=== PATIENT | male | born 1970 | race Caucasian/White ===

== ENCOUNTER 2017-02-07 18:28 | Emergency (ER) | payer BC ==
[2017-02-07 18:41] VITALS: TEMP 99.2
[2017-02-07] MEDS ORDERED: GLUCAGON 1 MG/ML VIAL IVP STA (19:19)
--- NOTE | 2017-02-07 19:46 | XR ---
EXAMINATION TYPE: XR chest 2V DATE OF EXAM: 02/07/2017 7:38 PM COMPARISON: 08/05/2016 HISTORY: Choking episode TECHNIQUE: Frontal and lateral views of the chest are obtained. FINDINGS: Heart and mediastinum are normal. Lungs are clear of consolidation. There are no hilar mas ses. There is no sign of a foreign body. Bony thorax is intact. Trachea is midline. IMPRESSION: Normal chest. No change.
--- NOTE | 2017-02-07 19:51 | ED ---
General Adult HPI - General Chief complaint: ENT Stated complaint: Choking Source: patient, EMS Mode of arrival: EMS Limitations: no limitations - History of Present Illness Initial comments: 47-year-old male presenting for evaluation of foreign body stuck in his esophagus. He states that he has a family and personal past medical history of esophageal narrowing although he is unsure of an official diagnosis. He states that in the past he has had multiple episodes where his had food become lodged in his throat but they will usually pass after a short time. He states that he was eating steak tonight and was in a ga causing him to try to swallow APC had not chewed enough and was too large. It became stuck in his throat and he was there for unable to swallow anything further. He states that he has to lean over a bucket because he can't even swallow his own spit. He states his father had similar episodes resulting in him going to a GI specialist for repeated endoscopies with stretching of his esophagus. - Related Data Home Medications Medication Instructions Recorded Confirmed Acetaminophen Tab [Tylenol Tab] 650 mg PO Q4H PRN 08/05/16 02/07/17 Fluticasone/Salmeterol [Advair 1 puff INHALATION RT-BID 08/05/16 02/07/17 250-50 Diskus] Lisinopril [Zestril] 20 mg PO DAILY 08/05/16 02/07/17 Omeprazole 20 mg PO DAILY 08/05/16 02/07/17 Meloxicam [Mobic] 15 mg PO DAILY 02/07/17 02/07/17 predniSONE 15 mg PO BID 02/07/17 02/07/17 Allergies Allergy/AdvReac Type Severity Reaction Status Date / Time No Known Allergies Allergy Verified 02/07/17 19:00 Review of Systems ROS Statement: Those systems with pertinent positive or pertinent negative responses have been documented in the HPI. ROS Other: All systems not noted in ROS Statement are negative. Constitutional: Denies: fever, chills Eyes: Denies: eye pain, eye discharge ENT: Denies: ear pain, throat pain Respiratory: Denies: cough, dyspnea Cardiovascular: Denies: chest pain, palpitations, dyspnea on exertion, orthopnea Endocrine: Denies: fatigue, polydipsia Gastrointestinal: Reports: other (Food bolus (steak) stuck in esophagus ). Denies: abdominal pain, nausea Genitourinary: Denies: urgency, dysuria Musculoskeletal: Denies: back pain, arthralgia Skin: Denies: rash, lesions Neurological: Denies: headache, weakness Psychiatric: Denies: anxiety, depression Past Medical History Past Medical History: Asthma, Hypertension Additional Past Medical History / Comment(s): alcoholism - sober 4 yrs History of Any Multi-Drug Resistant Organisms: None Reported Past Surgical History: Bowel Resection Past Psychological History: No Psychological Hx Reported Smoking Status: Never smoker Past Alcohol Use History: None Reported Past Drug Use History: None Reported General Exam Limitations: no limitations General appearance: alert, in distress Head exam: Present: atraumatic, normocephalic, normal inspection Eye exam: Present: normal appearance, PERRL, EOMI. Absent: scleral icterus, conjunctival injection, periorbital swelling ENT exam: Present: normal exam, mucous membranes moist Neck exam: Present: normal inspection. Absent: tenderness, meningismus, lymphadenopathy Respiratory exam: Present: normal lung sounds bilaterally. Absent: respiratory distress, wheezes, rales, rhonchi, stridor Cardiovascular Exam: Present: regular rate, normal rhythm, normal heart sounds. Absent: systolic murmur, diastolic murmur, rubs, gallop, clicks GI/Abdominal exam: Present: soft, normal bowel sounds. Absent: distended, tenderness, guarding, rebound, rigid Rectal exam: Present: deferred Extremities exam: Present: normal inspection, full ROM, normal capillary refill. Absent: tenderness, pedal edema, joint swelling, calf tenderness Back exam: Present: normal inspection Neurological exam: Present: alert, oriented X3, CN II-XII intact Psychiatric exam: Present: normal affect, normal mood Skin exam: Present: warm, dry, intact, normal color. Absent: rash Course Vital Signs 02/07/17 02/07/17 18:39 19:58 Temperature 99.2 F Pulse Rate 83 65 Respiratory 18 16 Rate Blood Pressure 167/93 152/92 O2 Sat by Pulse 97 99 Oximetry Medical Decision Making - Medical Decision Making 47-year-old male with past medical history of esophageal foreign bodies presented for evaluation of throat/chest pain following eating a larger piece of steak resulting in inability to swallow saliva. On initial evaluation the patient was bent over a bucket with saliva running out of his mouth. He is able to phonate without difficulty and has no respiratory distress. He states that this is happened before and that his father also had a similar condition requiring multiple endoscopies. We'll provide patient with glucagon, Reglan, nitro, and obtain AP and lateral views of both the chest and the neck. Prior to administering any medications the patient had sudden onset relief of all symptoms. He is provided with a bedside swallow challenge which he passed without difficulty. AP chest x-ray was obtained which showed no acute abnormalities. The patient was informed of these results and that he would be discharged with instructions to follow-up with his primary care physician as well as a referral for a GI specialist. He is further advised to return to this facility if his symptoms should worsen or persist. He acknowledged an understanding of this information and agreed with this plan of care. Disposition Clinical Impression: Impacted esophageal foreign body Disposition: HOME SELF-CARE Condition: Stable Instructions: Esophageal Foreign Body (ED) Referrals: Bobbi Wheat MD [Primary Care Provider] - 1-2 days Naomie Weaver MD [STAFF PHYSICIAN] - 1-2 days Time of Disposition: 19:51
[2017-02-07 19:59] VITALS: BP 152/92; PULSE 65; RESP 16
== END 2017-02-07 19:59 | disposition home or self-care (01) ==
LOC: EC 18:28
DX: T18.128A Food in esophagus causing other injury, initial encounter (principal); J45.909 Unspecified asthma, uncomplicated; I10 Essential (primary) hypertension; Z90.49 Acquired absence of other specified parts of digestive tract; Z79.1 Long term (current) use of non-steroidal anti-inflammatories (NSAID); Z79.51 Long term (current) use of inhaled steroids; Z79.52 Long term (current) use of systemic steroids; Z79.899 Other long term (current) drug therapy
CPT/HCPCS: 71020; 99283

== ENCOUNTER → 2018-02-23 | Outpatient (CLI) | payer BC ==
--- NOTE | 2018-02-23 10:02 | US ---
EXAMINATION TYPE: US abdomen complete DATE OF EXAM: 02/23/2018 COMPARISON: NONE CLINICAL HISTORY: R94.5 Elevated liver test,R10.84 Abdominal pain. Fatigue, Previous Alcohol Abuse EXAM MEASUREMENTS: Liver Length: 15.6 cm Gallbladder Wall: 0.2 cm CBD: 0.5 cm Spleen: 10.0 cm Right Kidney: 10.1 x 5.0 x 4.5 cm Left Kidney: 10.4 x 6.0 x 5.0 cm Pancreas: Obscured by bowel gas, duct =0.2 cm Liver: wnl Gallbladder: wnl Evidence for sonographic Bragg's sign: No CBD: wnl Spleen: wnl Right Kidney: wnl Left Kidney: Cyst mid/lower pole = 2.7 x 1.9 x 1.7 cm Upper IVC: wnl Abd Aorta: wnl, Mid portion obscured by overlying bowel gas. IMPRESSION: 1. Inferior pole simple appearing left renal cyst.
== END | disposition home or self-care (01) ==
LOC: RADUSWWP 07:01
PROVIDERS: ATTEND Internal Medicine
DX: R94.5 Abnormal results of liver function studies (principal)
CPT/HCPCS: 76700

== ENCOUNTER 2019-06-29 00:53 | Emergency (ER) | payer BC ==
[2019-06-29 01:22] VITALS: BP 112/74; PULSE 69; RESP 20; TEMP 97.7
[2019-06-29] MEDS ORDERED: methylPREDNISolone SOD SUCCI 125 MG/2 ML VIAL IM ONE (02:12)
--- NOTE | 2019-06-29 02:13 | ED ---
Back Pain HPI - General Chief Complaint: Back Pain/Injury Stated Complaint: Back Pain Time Seen by Provider: 06/29/19 01:27 Source: patient Limitations: no limitations - History of Present Illness Initial Comments: 49-year-old male patient presents to the emergency department today for evaluation of mid low back pain. Patient states he does have chronic low back pain in his symptoms are consistent with his usual back pain pattern. Patient states his pain has been increasing over the last 2 days. Patient states he was doing more vigorous physical activity at work which exacerbated his symptoms. He denies any radiation the pain down his legs. Denies any numbness or tingling to the lower extremities. Denies any saddle anesthesia or loss of bowel or bladder control. Patient states that he has been taking Tylenol for pain at home. States he does have a pain stimulator implanted however due to insurance reasons has been unable to have this adjusted. States he does have an appointment in 1 week with a painter touch up. Patient is requesting prescription for steroids. Declines pain medication at this time. He denies any fever or chills per denies any known injury to the back. Patient denies any headache, neck pain, chest pain, shortness of breath, dizziness, weakness, abdominal pain, nausea, vomiting, or difficulties with bowel movements or urin ation. - Related Data Home Medications Medication Instructions Recorded Confirmed Fluticasone/Salmeterol [Advair 1 puff INHALATION RT-BID 08/05/16 06/29/19 250-50 Diskus] Lisinopril [Zestril] 20 mg PO DAILY 08/05/16 06/29/19 Omeprazole 20 mg PO DAILY 08/05/16 06/29/19 Meloxicam [Mobic] 15 mg PO DAILY 02/07/17 06/29/19 Previous Rx's Medication Instructions Recorded predniSONE 50 mg PO DAILY #5 tablet 06/29/19 Allergies Allergy/AdvReac Type Severity Reaction Status Date / Time No Known Allergies Allergy Verified 02/07/17 19:00 Review of Systems ROS Statement: Those systems with pertinent positive or pertinent negative responses have been documented in the HPI. ROS Other: All systems not noted in ROS Statement are negative. Past Medical History Past Medical History: Asthma, Hypertension Additional Past Medical History / Comment(s): alcoholism - sober 4 yrs History of Any Multi-Drug Resistant Organisms: None Reported Past Surgical History: Bowel Resection Past Psychological History: No Psychological Hx Reported Smoking Status: Never smoker Past Alcohol Use History: None Reported Past Drug Use History: None Reported General Exam Limitations: no limitations General appearance: alert, in no apparent distress, other (Physical well- developed, well-nourished adult male patient in no acute distress. Vital signs upon presentation are temperature 97.7F, pulse 69, respirations 20, blood pressure 112/74, pulse ox 98% on room air.) Eye exam: Present: normal appearance, PERRL, EOMI. Absent: scleral icterus, conjunctival injection, periorbital swelling ENT exam: Present: normal exam, normal oropharynx, mucous membranes moist Respiratory exam: Present: normal lung sounds bilaterally. Absent: respiratory distress, wheezes, rales, rhonchi, stridor Cardiovascular Exam: Present: regular rate, normal rhythm, normal heart sounds. Absent: systolic murmur, diastolic murmur, rubs, gallop, clicks GI/Abdominal exam: Present: soft, normal bowel sounds. Absent: distended, tenderness, guarding, rebound, rigid Back exam: Present: normal inspection. Absent: vertebral tenderness Neurological exam: Present: alert, oriented X3, CN II-XII intact Psychiatric exam: Present: normal affect, normal mood Skin exam: Present: warm, dry, intact, normal color. Absent: rash Course Vital Signs 06/29/19 01:18 Temperature 97.7 F Pulse Rate 69 Respiratory 20 Rate Blood Pressure 112/74 O2 Sat by Pulse 98 Oximetry Medical Decision Making - Medical Decision Making 49-year-old male patient presents to the emergency department today for evaluation of worsening of his chronic low back pain. Physical examination is unremarkable. He is neurologically intact with no focal deficits. Strength in the lower extremities is intact. He is ambulatory. He is requesting prescription for steroids, declines pain medication. We will fill for prednisone for him. Is instructed to follow-up with his painter touch up as he has planned. Is instructed to follow-up with his primary care physician for recheck in 1-2 days. Return parameters were discussed in detail. He verbalizes understanding and agrees with this plan. Disposition Clinical Impression: Acute exacerbation of chronic low back pain Disposition: HOME SELF-CARE Condition: Good Instructions (If sedation given, give patient instructions): Acute Low Back Pain (ED) Additional Instructions: Perform gentle stretching exercises. Alternate ice and heat to the low back. Take medication as directed. Follow-up with your physician as you have planned. Return to the emergency department immediately for any new, worsening, or concerning symptoms. Prescriptions: predniSONE 50 mg PO DAILY #5 tablet Is patient prescribed a controlled substance at d/c from ED?: No Referrals: Bobbi Wheat MD [Primary Care Provider] - 1-2 days Time of Disposition: 02:13
== END 2019-06-29 02:28 | disposition home or self-care (01) ==
LOC: EC 00:53
DX: G89.29 Other chronic pain (principal); M54.5 Low back pain; J45.909 Unspecified asthma, uncomplicated; I10 Essential (primary) hypertension; Z79.1 Long term (current) use of non-steroidal anti-inflammatories (NSAID); Z79.899 Other long term (current) drug therapy
CPT/HCPCS: 99283; 96372; J2930

== ENCOUNTER 2021-03-10 09:22 | Inpatient (IN) | payer BC ==
[2021-03-10] MEDS ORDERED: SODIUM CHLORIDE 0.9% 500 ML 500 ML IV STA (09:41)
[2021-03-10] MEDS ORDERED: KETOROLAC 15 MG/ML 1 ML VIAL IVP STA (09:42)
[2021-03-10] MEDS ORDERED: LORazepam 2 MG/ML INJ IV STA (09:42)
--- NOTE | 2021-03-10 09:47 | ED ---
SOB HPI - General Chief Complaint: Shortness of Breath Stated Complaint: Covid+, low O2 Time Seen by Provider: 03/10/21 09:33 Source: patient, RN notes reviewed Mode of arrival: ambulatory Limitations: no limitations - History of Present Illness Initial Comments: 51-year-old male presents emergency Department chief complaint of shortness of breath, positive covid. Patient states that it's has a +6 days ago. Patient states progressively worsening. He does have a history of asthma. Patient states she's had increased shortness breath, fever cough congestion body aches. Patient denies any GI symptoms including nausea, vomiting, diarrhea constipat ion. Patient's had multiple sick contacts. Patient does have a history of hypertension states he did take his blood pressure medication he states been taking prednisone for his back. - Related Data Home Medications Medication Instructions Recorded Confirmed Albuterol Inhaler [Ventolin Hfa 2 puff INHALATION RT-Q6H PRN 03/10/21 03/10/21 Inhaler] Dexamethasone [Decadron] 6 mg PO DAILY 03/10/21 03/10/21 Fluticasone Nasal Rogers [Flonase 2 spr EA NOSTRIL DAILY 03/10/21 03/10/21 Nasal Rogers] LORazepam [Ativan] 0.25 - 0.5 mg PO DAILY PRN 03/10/21 03/10/21 Loratadine 10 mg PO DAILY 03/10/21 03/10/21 Meloxicam [Mobic] 15 mg PO DAILY 03/10/21 03/10/21 Montelukast [Singulair] 10 mg PO DAILY 03/10/21 03/10/21 Omeprazole 20 mg PO BID 03/10/21 03/10/21 Sildenafil [Revatio] 40 - 60 mg PO DAILY PRN 03/10/21 03/10/21 Testosterone Cypionate 250 mg IM Q14D 03/10/21 03/10/21 [Depo-Testosterone] lisinopriL 40 mg PO DAILY 03/10/21 03/10/21 predniSONE See Taper PO DAILY 03/10/21 03/10/21 Allergies Allergy/AdvReac Type Severity Reaction Status Date / Time No Known Allergies Allergy Verified 03/10/21 10:43 Review of Systems ROS Statement: Those systems with pertinent positive or pertinent negative responses have been documented in the HPI. ROS Other: All systems not noted in ROS Statement are negative. Past Medical History Past Medical History: Asthma, Hypertension Additional Past Medical History / Comment(s): alcoholism - sober 10yrs History of Any Multi-Drug Resistant Organisms: None Reported Past Surgical History: Bowel Resection Past Psychological History: Anxiety Smoking Status: Never smoker Past Alcohol Use History: None Reported Past Drug Use History: None Reported General Exam Limitations: no limitations General appearance: alert, in no apparent distress Head exam: Present: atraumatic, normocephalic, normal inspection Eye exam: Present: normal appearance, PERRL, EOMI. Absent: scleral icterus, conjunctival injection, periorbital swelling ENT exam: Present: normal exam, normal oropharynx, mucous membranes moist Neck exam: Present: normal inspection, full ROM. Absent: tenderness, meningismus, lymphadenopathy Respiratory exam: Present: wheezes, decreased breath sounds. Absent: normal lung sounds bilaterally, respiratory distress, rales, rhonchi, stridor Cardiovascular Exam: Present: regular rate, normal rhythm, normal heart sounds. Absent: systolic murmur, diastolic murmur, rubs, gallop, clicks GI/Abdominal exam: Present: soft, normal bowel sounds. Absent: distended, tenderness, guarding, rebound, rigid Extremities exam: Present: normal capillary refill. Absent: pedal edema Neurological exam: Present: alert Skin exam: Present: warm, dry, intact, normal color. Absent: rash Course Vital Signs 03/10/21 03/10/21 09:23 09:41 Temperature 97.8 F Pulse Rate 97 101 H Respiratory 22 24 Rate Blood Pressure 178/110 164/101 O2 Sat by Pulse 88 L 96 Oximetry Medical Decision Making - Medical Decision Making X-ray shows diffuse bilateral infiltrates, patient was hypoxic at 88 on arrival. Patient is positive for COVID-19. Patient does have mild leukocytosis most likely related from his prednisone use. Patient will be admitted for further tr eatment and evaluation - Lab Data Result diagrams: 03/10/21 09:45 03/10/21 09:45 Lab Results 03/10/21 03/10/21 03/10/21 Range/Units 09:45 09:45 09:45 WBC 21.0 H (3.8-10.6) k/uL RBC 5.62 (4.30-5.90) m/uL Hgb 15.2 (13.0-17.5) gm/dL Hct 46.0 (39.0-53.0) % MCV 81.9 (80.0-100.0) fL MCH 27.1 (25.0-35.0) pg MCHC 33.1 (31.0-37.0) g/dL RDW 13.4 (11.5-15.5) % Plt Count 252 (150-450) k/uL MPV 6.9 Neutrophils % 96 % Lymphocytes % 2 % Monocytes % 2 % Eosinophils % 0 % Basophils % 0 % Neutrophils # 20.2 H (1.3-7.7) k/uL Lymphocytes # 0.3 L (1.0-4.8) k/uL Monocytes # 0.4 (0-1.0) k/uL Eosinophils # 0.0 (0-0.7) k/uL Basophils # 0.0 (0-0.2) k/uL PT 9.5 (9.0-12.0) sec INR 0.9 (<1.2) APTT 23.2 (22.0-30.0) sec Sodium 136 L (137-145) mmol/L Potassium 4.5 (3.5-5.1) mmol/L Chloride 99 (98-107) mmol/L Carbon Dioxide 29 (22-30) mmol/L Anion Gap 8 mmol/L BUN 20 (9-20) mg/dL Creatinine 0.88 (0.66-1.25) mg/dL Est GFR (CKD-EPI)AfAm >90 (>60 ml/min/1.73 sqM) Est GFR (CKD-EPI)NonAf >90 (>60 ml/min/1.73 sqM) Glucose 122 H (74-99) mg/dL Calcium 9.2 (8.4-10.2) mg/dL Magnesium 2.1 (1.6-2.3) mg/dL Total Bilirubin 0.8 (0.2-1.3) mg/dL AST 32 (17-59) U/L ALT 22 (4-49) U/L Alkaline Phosphatase 61 (38-126) U/L Troponin I (0.000-0.034) ng/mL Total Protein 6.4 (6.3-8.2) g/dL Albumin 3.5 (3.5-5.0) g/dL 03/10/21 Range/Units 09:45 WBC (3.8-10.6) k/uL RBC (4.30-5.90) m/uL Hgb (13.0-17.5) gm/dL Hct (39.0-53.0) % MCV (80.0-100.0) fL MCH (25.0-35.0) pg MCHC (31.0-37.0) g/dL RDW (11.5-15.5) % Plt Count (150-450) k/uL MPV Neutrophils % % Lymphocytes % % Monocytes % % Eosinophils % % Basophils % % Neutrophils # (1.3-7.7) k/uL Lymphocytes # (1.0-4.8) k/uL Monocytes # (0-1.0) k/uL Eosinophils # (0-0.7) k/uL Basophils # (0-0.2) k/uL PT (9.0-12.0) sec INR (<1.2) APTT (22.0-30.0) sec Sodium (137-145) mmol/L Potassium (3.5-5.1) mmol/L Chloride (98-107) mmol/L Carbon Dioxide (22-30) mmol/L Anion Gap mmol/L BUN (9-20) mg/dL Creatinine (0.66-1.25) mg/dL Est GFR (CKD-EPI)AfAm (>60 ml/min/1.73 sqM) Est GFR (CKD-EPI)NonAf (>60 ml/min/1.73 sqM) Glucose (74-99) mg/dL Calcium (8.4-10.2) mg/dL Magnesium (1.6-2.3) mg/dL Total Bilirubin (0.2-1.3) mg/dL AST (17-59) U/L ALT (4-49) U/L Alkaline Phosphatase (38-126) U/L Troponin I <0.012 (0.000-0.034) ng/mL Total Protein (6.3-8.2) g/dL Albumin (3.5-5.0) g/dL Disposition Clinical Impression: Pneumonia due to COVID-19 virus, Hypoxic Disposition: ADMITTED IP TO THIS HOSP Condition: Fair Referrals: Tara Hunt DO [Primary Care Provider] - 1-2 days
[2021-03-10 09:56] LABS: Basophils % (A) 0 %; Eosinophils % (A) 0 %; HGB 15.2 gm/dL (13.0-17.5); Lymphocytes # (A) 0.3 k/uL (1.0-4.8); Lymphocytes % (A) 2 %; MCH 27.1 pg (25.0-35.0); MCHC 33.1 g/dL (31.0-37.0); MCV 81.9 fL (80.0-100.0); Mean Platelet Volume 6.9; Monocytes # (A) 0.4 k/uL (0-1.0); Monocytes % (A) 2 %; Neutrophils # (A) 20.2 k/uL (1.3-7.7); Neutrophils % (A) 96 %; Platelet Count 252 k/uL (150-450); RBC 5.62 m/uL (4.30-5.90); RDW 13.4 % (11.5-15.5)
[2021-03-10 10:04] LABS: INR 0.9 (<1.2); Partial Thromboplastin Time 23.2 sec (22.0-30.0); Prothrombin Time 9.5 sec (9.0-12.0)
--- NOTE | 2021-03-10 10:06 | XR ---
EXAMINATION TYPE: XR chest 1V portable DATE OF EXAM: 03/10/2021 COMPARISON: Chest x-ray February 07, 2017 HISTORY: Cough and fever. COVID positive TECHNIQUE: Single AP portable frontal view of the chest is obtained. FINDINGS: There are multifocal and confluent opacities in the mid to lower lungs on background low l carissa volumes. The cardiac silhouette size remains within normal limits. The osseous structures are intact. IMPRESSION: New Multifocal and confluent bilateral opacities consistent with reported history of cov id-19 infection.
[2021-03-10 10:09] LABS: ALT 22 U/L (4-49); AST 32 U/L (17-59); African American GFR (CKD) >90 (>60 ml/min/1.73 sqM); Albumin 3.5 g/dL (3.5-5.0); Alkaline Phosphatase 61 U/L (38-126); Anion Gap 8 mmol/L; Blood Urea Nitrogen 20 mg/dL (9-20); Calcium 9.2 mg/dL (8.4-10.2); Carbon Dioxide 29 mmol/L (22-30); Chloride 99 mmol/L (98-107); Glucose 122 mg/dL (74-99); Magnesium 2.1 mg/dL (1.6-2.3); Non-African American GFR(CKD) >90 (>60 ml/min/1.73 sqM); Potassium 4.5 mmol/L (3.5-5.1); Sodium 136 mmol/L (137-145); Total Bilirubin 0.8 mg/dL (0.2-1.3); Total Protein 6.4 g/dL (6.3-8.2)
[2021-03-10] MEDS ORDERED: IBUPROFEN 600 MG TAB PO PRN (11:27)
[2021-03-10] MEDS ORDERED: ACETAMINOPHEN TAB 325 MG TAB PO PRN (11:27)
[2021-03-10] MEDS ORDERED: NALOXONE 0.4 MG/ML 1 ML VIAL IV PRN (11:27)
[2021-03-10] MEDS: DEXAMETHASONE SOD PHOSPHATE 10 MG/ML 1 ML VIAL IV SCH (11:55)
[2021-03-10] MEDS ORDERED: REMDESIVIR 200 MG in SODIUM CHLORIDE 0.9% 250 ML IVPB ONE (13:00)
[2021-03-10] MEDS: ENOXAPARIN 40 MG/0.4 ML SYRINGE SQ SCH (13:20)
--- NOTE | 2021-03-10 15:08 | P.CNPUL ---
History of Present Illness Consult date: 03/10/21 Requesting physician: Tara Hunt Reason for consult: dyspnea, cough, hypoxemia, pneumonia, abnormal CXR/CT Chief complaint: Shortness of breath. History of present illness: 51-year-old male, with a history of hypertension, asthma, and alcoholism, who presents to the emergency department on March 10, complaining of increasing shortness of breath, and low saturations. The patient hasn't been feeling well for about 6-7 days. Things got progressively worse over the last couple of days, and he came in to be evaluated. He does have history of underlying chronic bronchial asthma. He did test positive for coronavirus about a week ago. His symptoms included shortness of breath, fever, cough, congestion, body aches. The symptoms got worse the last couple of days. Chest x-ray showed di ffuse bilateral infiltrates consistent with coronavirus pneumonia. White count 21,000, hemoglobin 15.2, hematocrit 46, platelet count 252,000. PT INR PTT and d-dimer were all within normal range. Sodium 136, potassium 4.5, chloride 99, CO2 29, anion gap 8, BUN 20, creatinine 0.88. LDH is 932. Review of Systems REVIEW OF SYSTEMS: CONSTITUTIONAL: Fever/chills. NEUROLOGIC: [ Negative.] HEENT: [ Negative.] CARDIAC: [Negative.] PULMONARY: Shortness of breath, cough, chest congestion. GI: [Negative.] : [Negative.] RHEUMATOLOGIC: [ Negative.] IMMUNOLOGIC: [ Negative.] ENDOCRINE: [Negative. ] DERMATOLOGIC: [Negative.] Past Medical History Past Medical History: Asthma, Hypertension Additional Past Medical History / Comment(s): alcoholism - sober 10yrs History of Any Multi-Drug Resistant Organisms: None Reported Past Surgical History: Bowel Resection Past Psychological History: Anxiety Smoking Status: Never smoker Past Alcohol Use History: None Reported Past Drug Use History: None Reported Medications and Allergies Home Medications Medication Instructions Recorded Confirmed Type Albuterol Inhaler [Ventolin Hfa 2 puff INHALATION RT-Q6H PRN 03/10/21 03/10/21 History Inhaler] Dexamethasone [Decadron] 6 mg PO DAILY 03/10/21 03/10/21 History Fluticasone Nasal [place] [Flonase 2 spr EA NOSTRIL DAILY 03/10/21 03/10/21 History Nasal [place]] LORazepam [Ativan] 0.25 - 0.5 mg PO DAILY PRN 03/10/21 03/10/21 History Loratadine 10 mg PO DAILY 03/10/21 03/10/21 History Meloxicam [Mobic] 15 mg PO DAILY 03/10/21 03/10/21 History Montelukast [Singulair] 10 mg PO DAILY 03/10/21 03/10/21 History Omeprazole 20 mg PO BID 03/10/21 03/10/21 History Sildenafil [Revatio] 40 - 60 mg PO DAILY PRN 03/10/21 03/10/21 History Testosterone Cypionate 250 mg IM Q14D 03/10/21 03/10/21 History [Depo-Testosterone] lisinopriL 40 mg PO DAILY 03/10/21 03/10/21 History predniSONE See Taper PO DAILY 03/10/21 03/10/21 History Allergies Allergy/AdvReac Type Severity Reaction Status Date / Time No Known Allergies Allergy Verified 03/10/21 10:43 Physical Exam Osteopathic Statement: *. No significant issues noted on an osteopathic structural exam other than those noted in the History and Physical/Consult. Vitals: Vital Signs Temp Pulse Resp BP Pulse Ox 03/10/21 11:27 86 18 156/106 95 03/10/21 09:41 101 H 24 164/101 96 03/10/21 09:23 97.8 F 97 22 178/110 88 L Intake and Output 03/09/21 03/10/21 03/10/21 22:59 06:59 14:59 Other: Weight 81.647 kg No acute distress, oriented 3. No respiratory distress, use of accessory muscles, or audible wheezing. Saturations 95% on 4 L. HEENT examination is grossly unremarkable. Neck supple. Full range of motion. No adenopathy thyromegaly or neck vein distention. Cardiovascular examination reveals regular rhythm rate. S1-S2 normal. No S3 or S4. No discernible murmur noted. Heart rate 89 bpm. Lungs reveal scattered bilateral rhonchi and crackles. No wheezes. Breath sounds equal bilaterally. Abdomen soft bowel sounds are heard. No masses or tenderness. Extremities are intact. No cyanosis clubbing or edema. Skin is without rash or lesion. Neurologic examination is brief but nonfocal. Results - Laboratory Findings CBC and BMP: 03/10/21 09:45 03/10/21 09:45 PT/INR, D-dimer PT 9.5 sec (9.0-12.0) 03/10/21 09:45 INR 0.9 (<1.2) 03/10/21 09:45 D-Dimer 0.40 mg/L FEU (<0.60) 03/10/21 13:36 Abnormal lab findings: Abnormal Labs 03/10/21 03/10/21 03/10/21 09:45 09:45 13:36 WBC 21.0 H Neutrophils # 20.2 H Lymphocytes # 0.3 L Sodium 136 L Glucose 122 H Lactate Dehydrogenase 932 H - Diagnostic Findings Chest x-ray: image reviewed Assessment and Plan Assessment: Acute hypoxemic respiratory failure secondary to COVID 19 pneumonia/pneumonitis. Chronic bronchial asthma. History of hypertension. History of recovering alcoholism. History of DJD. Plan: Plan dated 03/10/2021. The patient was seen in the emergency department. He is in room 2. The patient was felt to be a candidate for all appropriate therapies including vitamin C, vitamin D3, zinc, Decadron, Lovenox, and REM. His symptoms began about a week ago. Maybe a bit less than that. Given his age, and his relative good health, we thought he would benefit from the full spectrum of treatments. We will continue to follow make recommendations were needed. Prognosis is guarded. No additional recommendations are made at this time. Time with Patient: Greater than 30
--- NOTE | 2021-03-10 15:28 | HP ---
HISTORY AND PHYSICAL DATE OF SERVICE: 03/10/2021. CHIEF COMPLAINTS: Shortness of breath and cough. HISTORY OF PRESENT ILLNESS: This 51-year-old gentleman with a past medical history of multiple medical problems including asthma, hypertension, history of EtOH, sober for 10 years, history of anxiety being followed by Dr. Hunt in the outpatient setting, is complaining of fever. The patient apparently tested positive Covid-19 about 6 days ago. The patient had increasing shortness of breath and cough and the patient came to [facility] and patient is found to be hypoxic, room air pulse ox 88 percent. The patient also had features of bilateral interstitial pneumonia as evidenced by CT scan of the chest which was reviewed personally by me. The patient admitted to the hospital for further evaluation and treatment. With oxygen, pulse ox is slightly improving at this time. There is no history of fever, rigors or chills. No history of headache, loss of consciousness or seizures at this time. PAST MEDICAL HISTORY: History of asthma, hypertension, history of EtOH. MEDICATIONS: Home medications are: Prednisone, lisinopril, testosterone, Revatio, omeprazole, Singulair, Mobic, loratadine, Ativan, Flonase, Decadron, Ventolin. ALLERGIES: None. FAMILY HISTORY: No history of heart disease or strokes. SOCIAL HISTORY: No history of smoking. Previous alcohol intake. REVIEW OF SYSTEMS: ENT: No diminished vision. No diminished hearing. CARDIOVASCULAR: As mentioned earlier. RESPIRATION: As mentioned earlier. GI no nausea or vomiting. : No dysuria. NERVOUS SYSTEM: No numbness, weakness. ALLERGY/IMMUNOLOGY: As mentioned earlier. HEMATOLOGY/ONCOLOGY: No history of anemia. ENDOCRINE: No history of diabetes or hypothyroidism. CONSTITUTIONAL: As mentioned earlier. DERMATOLOGY negative. RHEUMATOLOGY negative. PSYCH: As mentioned earlier. PHYSICAL EXAMINATION: The patient is alert and oriented times three. Pulse 86, blood pressure 151/106, respiration 18, temperature 97.8, pulse ox 94% on 4 L. HEENT: Conjunctivae normal. NECK: No JVD. CARDIOVASCULAR: S1, S2 normal. RESPIRATORY: Breath sounds diminished in the bases. Scattered rhonchi and crackles. ABDOMEN: Soft, nontender. No mass palpable. LEGS: No edema. No swelling. NERVOUS SYSTEM: Higher functions as mentioned earlier. Moves all 4 limbs. No focal motor or sensory deficits. LYMPHATICS: No lymph nodes palpable in the neck, axillae or groin. SKIN: No ulcer, rashes or bleeding. JOINTS: No active deforming arthropathy. LAB STUDIES: WBC 21. D-dimer is 0.4. Glucose 122. ASSESSMENT: 1. Acute Covid-19 infection with acute Covid-19 bilateral interstitial pneumonia with acute hypoxic respiratory failure. 2. Increased WBC. 3. Hyponatremia. 4. History of asthma. 5. Hypertension. 6. History of ETOH. 7. History of bowel resection. 8. History of anxiety. 9. FULL CODE. RECOMMENDATIONS AND DISCUSSION: This 51-year-old gentleman who presented with multiple complex medical issues, we will monitor the patient closely. Continue current medications, pulmonary consultation. Lovenox, dexamethasone, Remdesivir. Otherwise, continue to monitor. Bronchodilators. Incentive spirometry. See orders for details. Prognosis guarded because of multiple complex medical issues. Further recommendations to follow. A copy of dictation being forwarded to Dr. Hunt, who is the primary physician. We will continue with the home medications as well. MMODL / IJN: [id number] /
[2021-03-10] MEDS: CHOLECALCIFEROL 25 MCG (1000 IU) TABLET PO SCH (15:51)
[2021-03-10] MEDS: ZINC SULFATE 220 MG CAP PO SCH (15:51)
[2021-03-10] MEDS: ASCORBIC ACID 500 MG TAB PO SCH (15:51)
[2021-03-10] MEDS ORDERED: hydrALAZINE HCL 20 MG/ML 1 ML VIAL IVP PRN (18:25)
[2021-03-10] MEDS: ALBUTEROL HFA INHALER INHALATION SCH (20:08)
[2021-03-10] MEDS: amLODIPine 10 MG TAB PO SCH (20:42)
[2021-03-11] MEDS: ALBUTEROL HFA INHALER INHALATION SCH ×4 (02:36→17:34)
[2021-03-11] MEDS: lisinopriL 20 MG TAB PO SCH (07:24)
[2021-03-11] MEDS: ENOXAPARIN 40 MG/0.4 ML SYRINGE SQ SCH (07:24)
[2021-03-11] MEDS: PANTOPRAZOLE 40 MG TABLET PO SCH (07:24)
[2021-03-11] MEDS: DEXAMETHASONE SOD PHOSPHATE 10 MG/ML 1 ML VIAL IV SCH (07:24)
[2021-03-11] MEDS: ZINC SULFATE 220 MG CAP PO SCH (07:24)
[2021-03-11] MEDS: MELOXICAM 7.5 MG TAB PO SCH (07:26)
[2021-03-11] MEDS: MONTELUKAST 10 MG TAB PO SCH (07:27)
[2021-03-11] MEDS: ASCORBIC ACID 500 MG TAB PO SCH (07:27)
[2021-03-11] MEDS: CHOLECALCIFEROL 25 MCG (1000 IU) TABLET PO SCH (07:27)
[2021-03-11] MEDS: amLODIPine 10 MG TAB PO SCH (07:27)
[2021-03-11] MEDS: FLUTICASONE 50MCG/SPRAY NASAL 16GM EA NOSTRIL SCH (08:29)
--- NOTE | 2021-03-11 09:18 | P.PN ---
Subjective Progress Note Date: 03/11/21 Principal diagnosis: COVID 19 pneumonia. Progress note dated 03/11/2021. 51-year-old male, with history of hypertension, asthma, and history of alcoholism, who presents to the emergency department on March 10 complaining of increasing shortness of breath and low saturations. The patient was diagnosed as having COVID 19 pneumonia. Currently, he is in the observation unit room 152. He is on 4 L nasal cannula. He is resting comfortably. We did give the patient Decadron, Lovenox, vitamins, and REM. No new labs to report. Objective - Vital Signs Vital signs: Vital Signs Temp 98.1 F 03/11/21 02:00 Pulse 79 03/11/21 02:00 Resp 16 03/11/21 02:00 BP 138/76 03/11/21 02:00 Pulse Ox 91 L 03/11/21 02:00 Intake & Output 03/10/21 03/11/21 03/11/21 18:59 06:59 18:59 Intake Total 0 1108 Balance 0 1108 Weight 81.647 kg Intake: Oral 790 Blood Product 0 318 Ffp Convalescent Plasma 0 318 Cpd Unit [id number] Other: Voiding Method Toilet # Voids 1 2 - Exam No acute distress, oriented 3. No respiratory distress, use of accessory muscles, or audible wheezing. Saturations 95% on 4 L. HEENT examination is grossly unremarkable. Neck supple. Full range of motion. No adenopathy thyromegaly or neck vein distention. Cardiovascular examination reveals regular rhythm rate. S1-S2 normal. No S3 or S4. No discernible murmur noted. Heart rate 79 bpm. Lungs reveal scattered bilateral rhonchi and crackles. No wheezes. Breath sounds equal bilaterally. Abdomen soft bowel sounds are heard. No masses or tenderness. Extremities are intact. No cyanosis clubbing or edema. Skin is without rash or lesion. Neurologic examination is brief but nonfocal. - Labs CBC & Chem 7: 03/10/21 09:45 03/10/21 09:45 Labs: Abnormal Lab Results - Last 24 Hours (Table) 03/10/21 03/10/21 03/10/21 Range/Units 09:45 09:45 13:36 WBC 21.0 H (3.8-10.6) k/uL Neutrophils # 20.2 H (1.3-7.7) k/uL Lymphocytes # 0.3 L (1.0-4.8) k/uL Sodium 136 L (137-145) mmol/L Glucose 122 H (74-99) mg/dL Lactate Dehydrogenase 932 H (313-618) U/L Procalcitonin (0.02-0.09) ng/mL 03/10/21 Range/Units 13:36 WBC (3.8-10.6) k/uL Neutrophils # (1.3-7.7) k/uL Lymphocytes # (1.0-4.8) k/uL Sodium (137-145) mmol/L Glucose (74-99) mg/dL Lactate Dehydrogenase (313-618) U/L Procalcitonin 0.51 H (0.02-0.09) ng/mL Assessment and Plan Assessment: Acute hypoxemic respiratory failure secondary to COVID 19 pneumonia/pneumonitis. Chronic bronchial asthma. History of hypertension. History of recovering alcoholism. History of DJD. Plan: Plan dated 03/10/2021. The patient was seen in the emergency department. He is in room 2. The patient was felt to be a candidate for all appropriate therapies including vitamin C, vitamin D3, zinc, Decadron, Lovenox, and REM. His symptoms began about a week ago. Maybe a bit less than that. Given his age, and his relative good health, we thought he would benefit from the full spectrum of treatments. We will continue to follow make recommendations were needed. Prognosis is guarded. No additional recommendations are made at this time. Plan dated 03/11/2021. The patient isn't observation unit, room 152. The patient is doing well, and is relatively stable. He remains on 34 L nasal cannula. The patient was given vitamin C, and the D3, zinc, Decadron, Lovenox, and REM. We did not think he was sick enough for TOCI. He seems to be doing relatively well. We will continue to follow make recommendations were appropriate. Prognosis is guarded. Time with Patient: Less than 30
[2021-03-11 09:52] LABS: African American GFR (CKD) >90 (>60 ml/min/1.73 sqM); Anion Gap 6 mmol/L; Blood Urea Nitrogen 23 mg/dL (9-20); Calcium 8.3 mg/dL (8.4-10.2); Carbon Dioxide 30 mmol/L (22-30); Chloride 99 mmol/L (98-107); Glucose 97 mg/dL (74-99); LDH 971 U/L (313-618); Non-African American GFR(CKD) >90 (>60 ml/min/1.73 sqM); Potassium 4.4 mmol/L (3.5-5.1); Sodium 135 mmol/L (137-145)
[2021-03-11 09:59] LABS: Basophils % (A) 0 %; Eosinophils % (A) 0 %; HCT 40.7 % (39.0-53.0); HGB 14.1 gm/dL (13.0-17.5); Lymphocytes # (A) 0.4 k/uL (1.0-4.8); Lymphocytes % (A) 2 %; MCH 28.1 pg (25.0-35.0); MCHC 34.5 g/dL (31.0-37.0); MCV 81.5 fL (80.0-100.0); Mean Platelet Volume 6.8; Monocytes # (A) 0.4 k/uL (0-1.0); Monocytes % (A) 3 %; Neutrophils # (A) 15.4 k/uL (1.3-7.7); Neutrophils % (A) 94 %; Platelet Count 242 k/uL (150-450); RDW 13.1 % (11.5-15.5); WBC 16.3 k/uL (3.8-10.6)
[2021-03-11] MEDS: HYDROcodone/APAP 5-325MG 1 EACH TAB PO PRN ×2 (11:54→17:41)
[2021-03-11] MEDS: REMDESIVIR 100 MG in SODIUM CHLORIDE 0.9% 250 ML IVPB SCH (12:37)
[2021-03-11 13:44] LABS: ALT 22 U/L (4-49); AST 33 U/L (17-59); African American GFR (CKD) >90 (>60 ml/min/1.73 sqM); Albumin 3.1 g/dL (3.5-5.0); Alkaline Phosphatase 53 U/L (38-126); Anion Gap 8 mmol/L; Blood Urea Nitrogen 24 mg/dL (9-20); Calcium 8.4 mg/dL (8.4-10.2); Carbon Dioxide 25 mmol/L (22-30); Chloride 100 mmol/L (98-107); Glucose 157 mg/dL (74-99); Non-African American GFR(CKD) >90 (>60 ml/min/1.73 sqM); Potassium 4.4 mmol/L (3.5-5.1); Sodium 133 mmol/L (137-145); Total Bilirubin 0.8 mg/dL (0.2-1.3); Total Protein 5.6 g/dL (6.3-8.2)
[2021-03-11 14:11] LABS: Appearance,Urine Clear (Clear); Bilirubin,Urine Negative (Negative); Blood,Urine Negative (Negative); Color,Urine Yellow; Glucose,Urine (UA) Negative (Negative); Ketones,Urine Negative (Negative); Leukocyte Esterase,Urine Negative (Negative); Nitrite,Urine Negative (Negative); PH, Urine 6.5 (5.0-8.0); Protein,Urine Trace (Negative); Specific Gravity,Urine 1.023 (1.001-1.035); Urobilinogen,Urine <2.0 mg/dL (<2.0)
--- NOTE | 2021-03-11 16:08 | PN ---
PROGRESS NOTE DATE OF SERVICE: 03/11/2021 This 51-year-old gentleman admitted with shortness of breath as well as significant COVID-19 infection and pneumonia is being closely monitored at this time. Dr. Michel is following the patient closely. The patient was started on remdesivir, day 2 today. The patient also had elevated inflammatory markers of COVID, and D-dimer is 0.9. I will order a CT angio of the chest. Past medical history reviewed. REVIEW OF SYSTEMS: CARDIOVASCULAR SYSTEM: No angina, palpitations. RESPIRATORY SYSTEM: As mentioned earlier. GI: As mentioned earlier. : No dysuria or retention. NERVOUS SYSTEM: No numbness, weakness. CURRENT MEDICATIONS: Reviewed. They include Tylenol, [place], Ventolin, vitamin C, vitamin D3, Decadron, Motrin. Doses are reviewed. PHYSICAL EXAMINATION: Alert and oriented x3. Pulse 92, blood pressure 138/89, respiration 18, temperature 99.5, pulse ox 90% on 6 L. HEENT: Conjunctivae normal. NECK: No jugular venous distention. CARDIOVASCULAR SYSTEM: S1, S2 muffled. RESPIRATORY SYSTEM: Breath sounds diminished at the bases. A few scattered rhonchi and crackles. ABDOMEN: Soft, non-tender. LEGS: No edema. No swelling. NERVOUS SYSTEM: No focal deficit. LABS: WBC 16.2, hemoglobin 14.1. D-dimer is 0.9. Sodium is 135 and LDH is 971. ASSESSMENT: 1. Acute COVID-19 infection with acute COVID-19 bilateral interstitial pneumonia with acute hypoxic respiratory failure. 2. Elevated D-dimer. Rule out pulmonary embolism. 3. Increased white count. 4. Hyponatremia. 5. History of asthma. 6. Hypertension. 7. History of ETOH. 8. History of bowel resection. 9. History of anxiety. 10.FULL CODE. RECOMMENDATIONS AND DISCUSSION: I recommend to continue current medications, continue with the monitoring, symptomatic treatment. Continue with remdesivir. Continue with Lovenox. Procalcitonin is elevated at 0.51. Will continue to monitor. I also recommend a CT angio of the chest and continue to monitor. Currently the patient is on 6 L, saturating around 90%. The patient is still short of breath at rest. Prognosis is extremely guarded because of multiple complex medical issues. Further recommendations to follow. MMODL / IJN: [id number] /
--- NOTE | 2021-03-11 16:15 | CT ---
EXAMINATION TYPE: CT angio chest DATE OF EXAM: 03/11/2021 COMPARISON: None HISTORY: Shortness of breath. CT DLP: 389.7 mGycm CONTRAST: CT chest with contrast and 3D reconstruction with MIP imaging is performed with IV Contrast, patient injected with 100 mL of Isovue 370. Contrast-enhanced CT of the chest was performed through the course of the pulmonary arteries with jane g and mediastinal window settings submitted. 3D reconstruction with MIP imaging was also performed. PULMONARY ARTERIES: The pulmonary arteries and their major tributaries are patent. I do not see sherry dence for sizable filling defect to suggest pulmonary embolic process. LUNGS: Diffuse airspace infiltrates throughout both lung yoder. No evidence for atelectasis. No pu lmonary nodule or mass is detected. No pleural effusion. MEDIASTINUM: Thoracic aorta is of normal caliber,however, evaluation is limited given timing of the contrast bolus. If there is concern for thoracic aortic pathology consider ALEJANDRO. Correlate clinicall y . The heart is not enlarged. No evidence for mediastinal mass. No mediastinal lymph nodes greater than 1cm. HILAR STRUCTURES: No evidence for mass. No hilar lymph nodes greater than 1 cm. UPPER ABDOMEN: No significant abnormality is seen. IMPRESSION: 1. No evidence for Pulmonary embolism at this time.
[2021-03-12] MEDS: ALBUTEROL HFA INHALER INHALATION SCH ×4 (00:22→19:48)
[2021-03-12] MEDS: HYDROcodone/APAP 5-325MG 1 EACH TAB PO PRN ×3 (00:38→17:49)
[2021-03-12] MEDS: PANTOPRAZOLE 40 MG TABLET PO SCH (08:05)
[2021-03-12] MEDS: MELOXICAM 7.5 MG TAB PO SCH (08:06)
[2021-03-12] MEDS: MONTELUKAST 10 MG TAB PO SCH (08:06)
[2021-03-12] MEDS: amLODIPine 10 MG TAB PO SCH (08:06)
[2021-03-12] MEDS: CHOLECALCIFEROL 25 MCG (1000 IU) TABLET PO SCH (08:06)
[2021-03-12] MEDS: ASCORBIC ACID 500 MG TAB PO SCH (08:10)
[2021-03-12] MEDS: ZINC SULFATE 220 MG CAP PO SCH (08:10)
[2021-03-12] MEDS: DEXAMETHASONE SOD PHOSPHATE 10 MG/ML 1 ML VIAL IV SCH (08:10)
[2021-03-12] MEDS: lisinopriL 20 MG TAB PO SCH (08:10)
[2021-03-12] MEDS: ENOXAPARIN 40 MG/0.4 ML SYRINGE SQ SCH (08:11)
[2021-03-12] MEDS: FLUTICASONE 50MCG/SPRAY NASAL 16GM EA NOSTRIL SCH (08:11)
[2021-03-12 08:36] LABS: Basophils # (A) 0.1 k/uL (0-0.2); Basophils % (A) 0 %; Eosinophils % (A) 0 %; HCT 44.2 % (39.0-53.0); Lymphocytes # (A) 0.8 k/uL (1.0-4.8); Lymphocytes % (A) 5 %; MCH 27.6 pg (25.0-35.0); MCHC 33.9 g/dL (31.0-37.0); MCV 81.5 fL (80.0-100.0); Mean Platelet Volume 7.3; Monocytes # (A) 0.6 k/uL (0-1.0); Monocytes % (A) 3 %; Neutrophils % (A) 91 %; Platelet Count 271 k/uL (150-450); RBC 5.41 m/uL (4.30-5.90); WBC 16.6 k/uL (3.8-10.6)
--- NOTE | 2021-03-12 10:37 | P.PN ---
Subjective Progress Note Date: 03/12/21 Principal diagnosis: COVID-19 pneumonia 51-year-old male, with a history of hypertension, asthma, and alcoholism, who presents to the emergency department on March 10, complaining of increasing shortness of breath, and low saturations. The patient hasn't been feeling well for about 6-7 days. Things got progressively worse over the last couple of days, and he came in to be evaluated. He does have history of underlying chronic bronchial asthma. He did test positive for coronavirus about a week ago. His symptoms included shortness of breath, fever, cough, congestion, body aches. The symptoms got worse the last couple of days. Chest x-ray showed diffuse bilateral infiltrates consistent with coronavirus pneumonia. White count 21,000, hemoglobin 15.2, hematocrit 46, platelet count 252,000. PT INR PTT and d-dimer were all within normal range. Sodium 136, potassium 4.5, chloride 99, CO2 29, anion gap 8, BUN 20, creatinine 0.88. LDH is 932. Progress note dated 03/11/2021. 51-year-old male, with history of hypertension, asthma, and history of alcoholism, who presents to the emergency department on March 10 complaining of increasing shortness of breath and low saturations. The patient was diagnosed as having COVID 19 pneumonia. Currently, he is in the observation unit room 152. He is on 4 L nasal cannula. He is resting comfortably. We did give the patient Decadron, Lovenox, vitamins, and REM. No new labs to report. The patient is seen today 03/12/2021 in follow-up on the observation unit. He is currently sitting up in bed. Awake and alert in no acute distress. He is still requiring 5 L/m per nasal cannula to maintain O2 saturation in the high 80s low 90s. CT angiogram ruled out pulmonary embolism. There is diffuse bilateral airspace disease. White count 16.6. Hemoglobin 15.0. Lymphocytes 0.8. He was given 1 unit of convalescent plasma. This is day #3 of Remdesivir. He remains on Lovenox, Decadron, vitamin supplements, bronchodilators. Objective - Vital Signs Vital signs: Vital Signs Temp 96.7 F L 03/12/21 00:43 Pulse 89 03/12/21 08:00 Resp 18 03/12/21 08:00 BP 139/80 03/12/21 08:00 Pulse Ox 92 L 03/12/21 08:00 Intake & Output 03/11/21 03/12/21 03/12/21 18:59 06:59 18:59 Intake Total 240 300 Output Total 400 Balance -160 300 Intake: Oral 240 300 Output: Urine 400 Other: Voiding Method Urinal Urinal - Exam GENERAL EXAM: Alert, pleasant 51-year-old gentleman, on 5 L nasal cannula, fairly comfortable in no apparent distress. HEAD: Normocephalic. EYES: Normal reaction of pupils, equal size. NOSE: Clear with pink turbinates. THROAT: No erythema or exudates. NECK: No masses, no JVD. CHEST: No chest wall deformity. LUNGS: Equal air entry with crackles in the bilateral bases. CVS: S1 and S2 normal with no audible murmur, regular rhythm. ABDOMEN: No hepatosplenomegaly, normal bowel sounds, no guarding or rigidity. SPINE: No scoliosis or deformity SKIN: No rashes CENTRAL NERVOUS SYSTEM: No focal deficits, tone is normal in all 4 extremities. EXTREMITIES: There is no peripheral edema. No clubbing, no cyanosis. Peripheral pulses are intact. - Labs CBC & Chem 7: 03/12/21 07:42 03/11/21 13:19 Labs: Abnormal Lab Results - Last 24 Hours (Table) 03/11/21 03/11/21 03/12/21 Range/Units 13:19 13:24 07:42 WBC 16.6 H (3.8-10.6) k/uL Neutrophils # 15.0 H (1.3-7.7) k/uL Lymphocytes # 0.8 L (1.0-4.8) k/uL Sodium 133 L (137-145) mmol/L BUN 24 H (9-20) mg/dL Glucose 157 H (74-99) mg/dL Total Protein 5.6 L (6.3-8.2) g/dL Albumin 3.1 L (3.5-5.0) g/dL Urine Protein Trace H (Negative) Assessment and Plan Assessment: 1 Acute hypoxemic respiratory failure secondary to COVID-19 pneumonia. Receiving Remdesivir, one unit convalescent plasma 2 History of chronic bronchial asthma 3 Hypertension 4 History of alcoholism 5 Degenerative joint disease. Plan: The patient was seen and evaluated by Dr. Michel CAT scan of the chest and labs reviewed Day #3 of Remdesivir Received convalescent plasma Continue Lovenox, Decadron, vitamin supplements Increase his activity as tolerated Titrate the FiO2 as tolerated We will continue to follow I, the cosigning physician, performed a history & physical examination of the patient. Lungs sounds crackles in the bilateral posterior bases. Maintaining good O2 saturations in the 90s on 5 L/m per nasal cannula. I discussed the assessment and plan of care with my nurse practitioner, Jessika Adkins. I attest to the above note as dictated by her.
--- NOTE | 2021-03-12 12:20 | P.PN ---
Subjective 51-year-old male was admitted for further Covid 19 pneumonia and patient still remains on 5 L of oxygen and saturations are in the low 90s. CT angios the chest did not show any PE did show bilateral diffuse as per his disease. Patient is on day 3 of Remdesivir. Patient is also on Lovenox Decadron and vitamin supplementation. D-dimer is 0.9 Constitutional: Denied any fatigue denied any fever. Cardio vascular: denied any chest pain, palpitations Gastrointestinal denied any nausea vomiting Pulmonary: As mentioned in the interval history Neurologic denied any new focal deficits All inpatient medications were reviewed and appropriate changes in these medications as dictated in the interval history and assessment and plan. Objective - Vital Signs Vital signs: Vital Signs Temp 96.7 F L 03/12/21 00:43 Pulse 89 03/12/21 08:00 Resp 18 03/12/21 08:00 BP 139/80 03/12/21 08:00 Pulse Ox 92 L 03/12/21 08:00 Intake & Output 03/11/21 03/12/21 03/12/21 18:59 06:59 18:59 Intake Total 240 300 Output Total 400 Balance -160 300 Intake: Oral 240 300 Output: Urine 400 Other: Voiding Method Urinal Urinal - Exam PHYSICAL EXAMINATION: GENERAL: The patient is alert and oriented x3, not in any acute distress. Well developed, well nourished. HEENT: Pupils are round and equally reacting to light. EOMI. No scleral icterus. No conjunctival pallor. Normocephalic, atraumatic. No pharyngeal erythema. No thyromegaly. CARDIOVASCULAR: S1 and S2 present. No murmurs, rubs, or gallops. PULMONARY: Bibasilar crackles ABDOMEN: Soft, nontender, nondistended, normoactive bowel sounds. No palpable organomegaly. MUSCULOSKELETAL: No joint swelling or deformity. EXTREMITIES: No cyanosis, clubbing, or pedal edema. NEUROLOGICAL: Gross neurological examination did not reveal any focal deficits. SKIN: No rashes. - Labs CBC & Chem 7: 03/12/21 07:42 03/11/21 13:19 Labs: Abnormal Lab Results - Last 24 Hours (Table) 03/11/21 03/11/21 03/12/21 Range/Units 13:19 13:24 07:42 WBC 16.6 H (3.8-10.6) k/uL Neutrophils # 15.0 H (1.3-7.7) k/uL Lymphocytes # 0.8 L (1.0-4.8) k/uL Sodium 133 L (137-145) mmol/L BUN 24 H (9-20) mg/dL Glucose 157 H (74-99) mg/dL Total Protein 5.6 L (6.3-8.2) g/dL Albumin 3.1 L (3.5-5.0) g/dL Urine Protein Trace H (Negative) Assessment and Plan Plan: -Acute hypoxic respiratory failure secondary to COVID-19 pneumonia continue with Remdesivir, received one unit convalescent plasmar. -Chronic bronchial asthma with mild acute exacerbation [place] have an hypertension -Hypovolemic hyponatremia patient will be started on IV fluids -Hypertension -Due to prophylaxis with Lovenox and GI prophylaxis Protonix
[2021-03-12] MEDS: REMDESIVIR 100 MG in SODIUM CHLORIDE 0.9% 250 ML IVPB SCH (13:44)
[2021-03-13] MEDS: HYDROcodone/APAP 5-325MG 1 EACH TAB PO PRN (03:51)
[2021-03-13] MEDS: ALBUTEROL HFA INHALER INHALATION SCH ×4 (08:03→20:00)
[2021-03-13 08:25] LABS: C Reactive Protein 2.6 mg/dL (<1.0)
[2021-03-13] MEDS: DEXAMETHASONE SOD PHOSPHATE 10 MG/ML 1 ML VIAL IV SCH (08:40)
[2021-03-13] MEDS: ZINC SULFATE 220 MG CAP PO SCH (08:40)
[2021-03-13] MEDS: MELOXICAM 7.5 MG TAB PO SCH (08:40)
[2021-03-13] MEDS: lisinopriL 20 MG TAB PO SCH (08:40)
[2021-03-13] MEDS: ASCORBIC ACID 500 MG TAB PO SCH (08:40)
[2021-03-13] MEDS: CHOLECALCIFEROL 25 MCG (1000 IU) TABLET PO SCH (08:41)
[2021-03-13] MEDS: FLUTICASONE 50MCG/SPRAY NASAL 16GM EA NOSTRIL SCH (08:41)
[2021-03-13] MEDS: MONTELUKAST 10 MG TAB PO SCH (08:41)
[2021-03-13] MEDS: PANTOPRAZOLE 40 MG TABLET PO SCH (08:41)
[2021-03-13] MEDS: amLODIPine 10 MG TAB PO SCH (08:41)
[2021-03-13] MEDS: ENOXAPARIN 40 MG/0.4 ML SYRINGE SQ SCH (08:41)
--- NOTE | 2021-03-13 08:53 | XR ---
EXAMINATION TYPE: XR chest 1V portable DATE OF EXAM: 03/13/2021 COMPARISON: Chest x-ray 03/10/2021 HISTORY: Covid pneumonia TECHNIQUE: Single frontal view of the chest is obtained. FINDINGS: Bilateral airspace disease is again noted. No evident pneumothorax or pleural effusion. Ca rdiomediastinal silhouette is stable accounting for differences in technique. There are overlying art ifacts. IMPRESSION: Correlate for pneumonia.
--- NOTE | 2021-03-13 11:07 | P.PN ---
Subjective Progress Note Date: 03/13/21 Principal diagnosis: COVID-19 pneumonia 51-year-old male, with a history of hypertension, asthma, and alcoholism, who presents to the emergency department on March 10, complaining of increasing shortness of breath, and low saturations. The patient hasn't been feeling well for about 6-7 days. Things got progressively worse over the last couple of days, and he came in to be evaluated. He does have history of underlying chronic bronchial asthma. He did test positive for coronavirus about a week ago. His symptoms included shortness of breath, fever, cough, congestion, body aches. The symptoms got worse the last couple of days. Chest x-ray showed diffuse bilateral infiltrates consistent with coronavirus pneumonia. White count 21,000, hemoglobin 15.2, hematocrit 46, platelet count 252,000. PT INR PTT and d-dimer were all within normal range. Sodium 136, potassium 4.5, chloride 99, CO2 29, anion gap 8, BUN 20, creatinine 0.88. LDH is 932. Progress note dated 03/11/2021. 51-year-old male, with history of hypertension, asthma, and history of alcoholism, who presents to the emergency department on March 10 complaining of increasing shortness of breath and low saturations. The patient was diagnosed as having COVID 19 pneumonia. Currently, he is in the observation unit room 152. He is on 4 L nasal cannula. He is resting comfortably. We did give the patient Decadron, Lovenox, vitamins, and REM. No new labs to report. The patient is seen today 03/12/2021 in follow-up on the observation unit. He is currently sitting up in bed. Awake and alert in no acute distress. He is still requiring 5 L/m per nasal cannula to maintain O2 saturation in the high 80s low 90s. CT angiogram ruled out pulmonary embolism. There is diffuse bilateral airspace disease. White count 16.6. Hemoglobin 15.0. Lymphocytes 0.8. He was given 1 unit of convalescent plasma. This is day #3 of Remdesivir. He remains on Lovenox, Decadron, vitamin supplements, bronchodilators. The patient is seen today 03/13/2021 follow-up on the observation unit. He is awake and alert in no acute distress. This is day #4 of Remdesivir. He has received 1 unit of convalescent plasma. He is breathing a bit easier today compared to yesterday. Still requiring 5 L high flow nasal cannula to maintain O2 saturations in the 90s. Chest x-ray continues to show bilateral airspace disease. D-dimer 1.01. LDH 1254. C-reactive protein 2.6. No current IV fluids running. His appetite has been good. Objective - Vital Signs Vital signs: Vital Signs Temp 96.7 F L 03/13/21 08:00 Pulse 79 03/13/21 08:00 Resp 16 03/13/21 08:00 BP 134/79 03/13/21 08:00 Pulse Ox 97 03/13/21 02:00 Intake & Output 03/12/21 03/13/21 03/13/21 18:59 06:59 18:59 Intake Total 750 2000 Balance 750 2000 Intake: Intake, IV Titration 250 Amount Remdesivir 100 mg In 250 Sodium Chloride 0.9% 250 ml @ 250 mls/hr IVPB Q24H [facility] Rx#:[id number] Oral 500 2000 Other: Voiding Method Urinal # Voids 2 - Exam GENERAL EXAM: Alert, 51-year-old male patient, on 5 L nasal cannula, fairly comfortable in no apparent distress. HEAD: Normocephalic. EYES: Normal reaction of pupils, equal size. NOSE: Clear with pink turbinates. THROAT: No erythema or exudates. NECK: No masses, no JVD. CHEST: No chest wall deformity. LUNGS: Equal air entry with crackles in the bilateral bases. CVS: S1 and S2 normal with no audible murmur, regular rhythm. ABDOMEN: No hepatosplenomegaly, normal bowel sounds, no guarding or rigidity. SPINE: No scoliosis or deformity SKIN: No rashes CENTRAL NERVOUS SYSTEM: No focal deficits, tone is normal in all 4 extremities. EXTREMITIES: There is no peripheral edema. No clubbing, no cyanosis. Peripheral pulses are intact. - Labs CBC & Chem 7: 03/12/21 07:42 03/11/21 13:19 Labs: Abnormal Lab Results - Last 24 Hours (Table) 03/13/21 03/13/21 Range/Units 07:42 07:42 D-Dimer 1.01 H (<0.60) mg/L FEU Lactate Dehydrogenase 1254 H (313-618) U/L C-Reactive Protein 2.6 H (<1.0) mg/dL Assessment and Plan Assessment: 1 Acute hypoxemic respiratory failure secondary to COVID-19 pneumonia. Receiving Remdesivir, one unit convalescent plasma 2 History of chronic bronchial asthma 3 Hypertension 4 History of alcoholism 5 Degenerative joint disease. Plan: The patient was seen and evaluated by Dr. Michel Chest x ray and labs reviewed Day #4 of Remdesivir Received convalescent plasma Continue Lovenox, Decadron, vitamin supplements Increase his activity as tolerated Titrate the FiO2 as tolerated Probable discharge in the a.m. May need home oxygen We will continue to follow I, the cosigning physician, performed a history & physical examination of the patient. Lungs sounds crackles in the bilateral posterior bases. Maintaining good O2 saturations in the 90s on 5 L/m per nasal cannula. I discussed the assessment and plan of care with my nurse practitioner, Jessika Adkins. I attest to the above note as dictated by her.
[2021-03-13] MEDS: REMDESIVIR 100 MG in SODIUM CHLORIDE 0.9% 250 ML IVPB SCH (12:09)
--- NOTE | 2021-03-13 16:17 | P.PN ---
Subjective 51-year-old male was admitted for further Covid 19 pneumonia and patient still remains on 5 L of oxygen and saturations are in the low 90s. CT angios the chest did not show any PE did show bilateral diffuse as per his disease. Patient is on day 3 of Remdesivir. Patient is also on Lovenox Decadron and vitamin supplementation. D-dimer is 0.9. 03/13/2021 Patient is on day 4 of Remdesivir patient remains on oxygen patient is feeling bit better still on 5 L of oxygen. Chest x-ray showing bilateral as is disease d-dimer is 1.01 and LDH pulse 54 fracture worse than before. Although clinically patient does feel better still short of breath. Constitutional: Denied any fatigue denied any fever. Cardio vascular: denied any chest pain, palpitations Gastrointestinal denied any nausea vomiting Pulmonary: As mentioned in the interval history Neurologic denied any new focal deficits All inpatient medications were reviewed and appropriate changes in these medications as dictated in the interval history and assessment and plan. Objective - Vital Signs Vital signs: Vital Signs Temp 96.9 F L 03/13/21 12:11 Pulse 74 03/13/21 12:11 Resp 16 03/13/21 08:00 BP 146/96 03/13/21 12:11 Pulse Ox 95 03/13/21 12:11 Intake & Output 03/12/21 03/13/21 03/13/21 18:59 06:59 18:59 Intake Total 750 2000 Balance 750 2000 Intake: Intake, IV Titration 250 Amount Remdesivir 100 mg In 250 Sodium Chloride 0.9% 250 ml @ 250 mls/hr IVPB Q24H [facility] Rx#:[id number] Oral 500 2000 Other: Voiding Method Urinal # Voids 2 - Exam PHYSICAL EXAMINATION: GENERAL: The patient is alert and oriented x3, not in any acute distress. Well developed, well nourished. HEENT: Pupils are round and equally reacting to light. EOMI. No scleral icterus. No conjunctival pallor. Normocephalic, atraumatic. No pharyngeal erythema. No thyromegaly. CARDIOVASCULAR: S1 and S2 present. No murmurs, rubs, or gallops. PULMONARY: Bibasilar crackles ABDOMEN: Soft, nontender, nondistended, normoactive bowel sounds. No palpable organomegaly. MUSCULOSKELETAL: No joint swelling or deformity. EXTREMITIES: No cyanosis, clubbing, or pedal edema. NEUROLOGICAL: Gross neurological examination did not reveal any focal deficits. SKIN: No rashes. - Labs CBC & Chem 7: 03/12/21 07:42 03/11/21 13:19 Labs: Abnormal Lab Results - Last 24 Hours (Table) 03/13/21 03/13/21 Range/Units 07:42 07:42 D-Dimer 1.01 H (<0.60) mg/L FEU Lactate Dehydrogenase 1254 H (313-618) U/L C-Reactive Protein 2.6 H (<1.0) mg/dL Assessment and Plan Plan: -Acute hypoxic respiratory failure secondary to COVID-19 pneumonia continue with Remdesivir, received one unit convalescent plasmar. -Chronic bronchial asthma with mild acute exacerbation hypertension -Hypovolemic hyponatremia patient will be started on IV fluids -Hypertension -DVT prophylaxis with Lovenox and GI prophylaxis Protonix
[2021-03-13] MEDS: SODIUM CHLORIDE 0.9% 1,000 ML IV SCH (18:20)
[2021-03-14] MEDS: ALBUTEROL HFA INHALER INHALATION SCH ×2 (08:02→11:20)
[2021-03-14] MEDS: CHOLECALCIFEROL 25 MCG (1000 IU) TABLET PO SCH (08:35)
[2021-03-14] MEDS: lisinopriL 20 MG TAB PO SCH (08:35)
[2021-03-14] MEDS: PANTOPRAZOLE 40 MG TABLET PO SCH (08:35)
[2021-03-14] MEDS: DEXAMETHASONE SOD PHOSPHATE 10 MG/ML 1 ML VIAL IV SCH (08:35)
[2021-03-14] MEDS: ASCORBIC ACID 500 MG TAB PO SCH (08:35)
[2021-03-14] MEDS: amLODIPine 10 MG TAB PO SCH (08:35)
[2021-03-14] MEDS: ZINC SULFATE 220 MG CAP PO SCH (08:35)
[2021-03-14] MEDS: ENOXAPARIN 40 MG/0.4 ML SYRINGE SQ SCH (08:35)
[2021-03-14] MEDS: MONTELUKAST 10 MG TAB PO SCH (08:35)
[2021-03-14] MEDS: FLUTICASONE 50MCG/SPRAY NASAL 16GM EA NOSTRIL SCH (08:36)
[2021-03-14] MEDS: MELOXICAM 7.5 MG TAB PO SCH (08:36)
[2021-03-14 09:33] LABS: African American GFR (CKD) >90 (>60 ml/min/1.73 sqM); Anion Gap 7 mmol/L; Blood Urea Nitrogen 21 mg/dL (9-20); Calcium 8.5 mg/dL (8.4-10.2); Carbon Dioxide 27 mmol/L (22-30); Chloride 102 mmol/L (98-107); Glucose 95 mg/dL (74-99); Non-African American GFR(CKD) >90 (>60 ml/min/1.73 sqM); Potassium 4.5 mmol/L (3.5-5.1); Sodium 136 mmol/L (137-145)
--- NOTE | 2021-03-14 09:53 | P.PN ---
Subjective Progress Note Date: 03/14/21 Principal diagnosis: COVID-19 pneumonia 51-year-old male, with a history of hypertension, asthma, and alcoholism, who presents to the emergency department on March 10, complaining of increasing shortness of breath, and low saturations. The patient hasn't been feeling well for about 6-7 days. Things got progressively worse over the last couple of days, and he came in to be evaluated. He does have history of underlying chronic bronchial asthma. He did test positive for coronavirus about a week ago. His symptoms included shortness of breath, fever, cough, congestion, body aches. The symptoms got worse the last couple of days. Chest x-ray showed diffuse bilateral infiltrates consistent with coronavirus pneumonia. White count 21,000, hemoglobin 15.2, hematocrit 46, platelet count 252,000. PT INR PTT and d-dimer were all within normal range. Sodium 136, potassium 4.5, chloride 99, CO2 29, anion gap 8, BUN 20, creatinine 0.88. LDH is 932. Progress note dated 03/11/2021. 51-year-old male, with history of hypertension, asthma, and history of alcoholism, who presents to the emergency department on March 10 complaining of increasing shortness of breath and low saturations. The patient was diagnosed as having COVID 19 pneumonia. Currently, he is in the observation unit room 152. He is on 4 L nasal cannula. He is resting comfortably. We did give the patient Decadron, Lovenox, vitamins, and REM. No new labs to report. The patient is seen today 03/12/2021 in follow-up on the observation unit. He is currently sitting up in bed. Awake and alert in no acute distress. He is still requiring 5 L/m per nasal cannula to maintain O2 saturation in the high 80s low 90s. CT angiogram ruled out pulmonary embolism. There is diffuse bilateral airspace disease. White count 16.6. Hemoglobin 15.0. Lymphocytes 0.8. He was given 1 unit of convalescent plasma. This is day #3 of Remdesivir. He remains on Lovenox, Decadron, vitamin supplements, bronchodilators. The patient is seen today 03/13/2021 follow-up on the observation unit. He is awake and alert in no acute distress. This is day #4 of Remdesivir. He has received 1 unit of convalescent plasma. He is breathing a bit easier today compared to yesterday. Still requiring 5 L high flow nasal cannula to maintain O2 saturations in the 90s. Chest x-ray continues to show bilateral airspace disease. D-dimer 1.01. LDH 1254. C-reactive protein 2.6. No current IV fluids running. His appetite has been good. The patient is seen today 03/14/2021 in follow-up on the observation unit curr ently sitting up at the bedside. Awake and alert in no acute distress. This is day #5 of Remdesivir. He also received convalescent plasma. He is down to 3 L nasal cannula and maintaining O2 saturation in the 90s. He is afebrile. Hemodynamically stable. Sodium 136. Potassium 4.5. Creatinine 0.79. Remains on Lovenox, Decadron, vitamin supplements. Objective - Vital Signs Vital signs: Vital Signs Temp 97.5 F L 03/14/21 08:00 Pulse 90 03/14/21 08:00 Resp 18 03/14/21 08:00 BP 122/82 03/14/21 08:00 Pulse Ox 97 03/14/21 08:00 Intake & Output 03/13/21 03/14/21 03/14/21 18:59 06:59 18:59 Intake Total 250 Balance 250 Intake: IV 250 Remdesivir 100 mg In 250 Sodium Chloride 0.9% 250 ml @ 250 mls/hr IVPB Q24H [facility] Rx#:[id number] Other: Voiding Method Urinal Urinal # Voids 2 - Exam GENERAL EXAM: Alert, 51-year-old male patient, on 3 L nasal cannula, fairly comfortable in no apparent distress. HEAD: Normocephalic. EYES: Normal reaction of pupils, equal size. NOSE: Clear with pink turbinates. THROAT: No erythema or exudates. NECK: No masses, no JVD. CHEST: No chest wall deformity. LUNGS: Equal air entry with faint crackles in the bilateral bases. CVS: S1 and S2 normal with no audible murmur, regular rhythm. ABDOMEN: No hepatosplenomegaly, normal bowel sounds, no guarding or rigidity. SPINE: No scoliosis or deformity SKIN: No rashes CENTRAL NERVOUS SYSTEM: No focal deficits, tone is normal in all 4 extremities. EXTREMITIES: There is no peripheral edema. No clubbing, no cyanosis. Melinda pheral pulses are intact. - Labs CBC & Chem 7: 03/12/21 07:42 03/14/21 08:40 Labs: Abnormal Lab Results - Last 24 Hours (Table) 03/14/21 Range/Units 08:40 Sodium 136 L (137-145) mmol/L BUN 21 H (9-20) mg/dL Assessment and Plan Assessment: 1 Acute hypoxemic respiratory failure secondary to COVID-19 pneumonia. Receiving day #5 of Remdesivir, one unit convalescent plasma 2 History of chronic bronchial asthma 3 Hypertension 4 History of alcoholism 5 Degenerative joint disease. Plan: The patient was seen and evaluated by Dr. Michel Cleared for discharge from the pulmonary standpoint Day #5 of Remdesivir Complete a 10 day course of dexamethasone May need home oxygen Follow-up in our office in 3-4 weeks I, the cosigning physician, performed a history & physical examination of the patient. Lungs sounds with faint crackles in the bilateral posterior bases. Maintaining good O2 saturations in the 90s on 3 L/m per nasal cannula. I disc ussed the assessment and plan of care with my nurse practitioner, Jessika Adkins. I attest to the above note as dictated by her.
[2021-03-14] MEDS: SODIUM CHLORIDE 0.9% 1,000 ML IV SCH (10:57)
[2021-03-14 13:12] VITALS: BP 128/65; PULSE 89; RESP 16; TEMP 97
--- NOTE | 2021-03-28 13:53 | P.DS ---
Providers Date of admission: 03/10/21 11:29 Expected date of discharge: 03/14/21 Attending physician: Rekha Adrian Consults: 03/10/21 11:27 Consult Physician Urgent Consulting Provider: Leonel Pickering Consult Reason/Comments: covid Do you want consulting provider notified?: Yes Primary care physician: Tara Cardozoarlo [facility] Course: 51-year-old male was admitted for further Covid 19 pneumonia and patient still remains on 5 L of oxygen and saturations are in the low 90s. CT angios the chest did not show any PE did show bilateral diffuse as per his disease. Patient is on day 3 of Remdesivir. Patient is also on Lovenox Decadron and vitamin supplementation. D-dimer is 0.9. 03/13/2021 Patient is on day 4 of Remdesivir patient remains on oxygen patient is feeling bit better still on 5 L of oxygen. Chest x-ray showing bilateral as is disease d-dimer is 1.01 and LDH pulse 54 fracture worse than before. Although clinically patient does feel better still short of breath. 03/14/2021 Patient seen in follow-up on the observation unit currently sitting up at the bedside. Awake and alert in no acute distress. This is day #5 of Remdesivir. He also received convalescent plasma. He is down to 3 L nasal cannula and maintaining O2 saturation in the 90s. He is afebrile. Hemodynamically stable. Sodium 136. Potassium 4.5. Creatinine 0.79. Remains on Lovenox, Decadron, vitamin supplements. Cleared for discharge from the pulmonary standpoint Day #5 of Remdesivir Complete a 10 day course of dexamethasone May need home oxygen Follow-up with Pulmonary in office in 3-4 weeks Patient Condition at Discharge: Fair Plan - Discharge Summary Discharge Rx Participant: Yes New Discharge Prescriptions: New Zinc Sulfate [Orazinc] 220 mg PO DAILY #30 cap Cholecalciferol [Vitamin D3 (25 Mcg = 1000 Iu)] 25 mcg PO DAILY #30 tablet Dexamethasone [Decadron] 6 mg PO DAILY 7 Days #7 tablet amLODIPine [Norvasc] 10 mg PO DAILY #30 tab Ascorbic Acid [Vitamin C] 500 mg PO DAILY #30 tab Continue Sildenafil [Revatio] 40 - 60 mg PO DAILY PRN PRN Reason: E.D. Omeprazole 20 mg PO BID Montelukast [Singulair] 10 mg PO DAILY LORazepam [Ativan] 0.25 - 0.5 mg PO DAILY PRN PRN Reason: Anxiety Fluticasone Nasal [place] [Flonase Nasal [place]] 2 spr EA NOSTRIL DAILY Dexamethasone [Decadron] 6 mg PO DAILY Testosterone Cypionate [Depo-Testosterone] 250 mg IM Q14D predniSONE See Taper PO DAILY Meloxicam [Mobic] 15 mg PO DAILY lisinopriL 40 mg PO DAILY Loratadine 10 mg PO DAILY Albuterol Inhaler [Ventolin Hfa Inhaler] 2 puff INHALATION RT-Q6H PRN PRN Reason: Shortness Of Breath Discharge Medication List Albuterol Inhaler [Ventolin Hfa Inhaler] 2 puff INHALATION RT-Q6H PRN 03/10/21 [History] Dexamethasone [Decadron] 6 mg PO DAILY 03/10/21 [History] Fluticasone Nasal [place] [Flonase Nasal [place]] 2 spr EA NOSTRIL DAILY 03/10/21 [History] LORazepam [Ativan] 0.25 - 0.5 mg PO DAILY PRN 03/10/21 [History] Loratadine 10 mg PO DAILY 03/10/21 [History] Meloxicam [Mobic] 15 mg PO DAILY 03/10/21 [History] Montelukast [Singulair] 10 mg PO DAILY 03/10/21 [History] Omeprazole 20 mg PO BID 03/10/21 [History] Sildenafil [Revatio] 40 - 60 mg PO DAILY PRN 03/10/21 [History] Testosterone Cypionate [Depo-Testosterone] 250 mg IM Q14D 03/10/21 [History] lisinopriL 40 mg PO DAILY 03/10/21 [History] predniSONE See Taper PO DAILY 03/10/21 [History] Ascorbic Acid [Vitamin C] 500 mg PO DAILY #30 tab 03/14/21 [Rx] Cholecalciferol [Vitamin D3 (25 Mcg = 1000 Iu)] 25 mcg PO DAILY #30 tablet 03/14/21 [Rx] Dexamethasone [Decadron] 6 mg PO DAILY 7 Days #7 tablet 03/14/21 [Rx] Zinc Sulfate [Orazinc] 220 mg PO DAILY #30 cap 03/14/21 [Rx] amLODIPine [Norvasc] 10 mg PO DAILY #30 tab 03/14/21 [Rx] Follow up Appointment(s)/Referral(s): [facility] [NON-STAFF] - (*Please call [facility] once home to arrange delivery of your oxygen concentrator. ) Tara Hunt DO [Primary Care Provider] - 1-2 days Darren Michel DO [Doctor of Osteopathic Medicine] - 2 Weeks Discharge Disposition: HOME SELF-CARE
== END 2021-03-14 13:57 | disposition home or self-care (01) | DRG 177 ==
LOC: EC 09:22 → 4SSUR 11:29 → 1SOBS 15:41
PROVIDERS: ADMIT Hospitalist; ATTEND Hospitalist
PROC: XW033E5 Introduction of Remdesivir Anti-infective into Peripheral Vein, Percutaneous Approach, New Technology Group 5 (ICD-10-PCS; principal; 2021-03-10)
PROC: XW13325 Transfusion of Convalescent Plasma (Nonautologous) into Peripheral Vein, Percutaneous Approach, New Technology Group 5 (ICD-10-PCS; principal; 2021-03-10)
DX: U07.1 COVID-19 (principal); J12.82 Pneumonia due to coronavirus disease 2019; J96.01 Acute respiratory failure with hypoxia; E87.1 Hypo-osmolality and hyponatremia; F10.21 Alcohol dependence, in remission; E86.1 Hypovolemia; I10 Essential (primary) hypertension; J45.909 Unspecified asthma, uncomplicated; M19.90 Unspecified osteoarthritis, unspecified site; F41.9 Anxiety disorder, unspecified; Z79.1 Long term (current) use of non-steroidal anti-inflammatories (NSAID); Z79.899 Other long term (current) drug therapy; Z90.49 Acquired absence of other specified parts of digestive tract; Z87.19 Personal history of other diseases of the digestive system; Z98.890 Other specified postprocedural states
CPT/HCPCS: 36415; 71045; 71275; 80048; 80053; 81003; 83615; 83735; 84145; 84484; 85025; 85379; 85610; 85730; 86140; 86850; 86900; 86901; 93005; 94640; 94667; 96361; 96374; 96375; 99285

== ENCOUNTER → 2022-04-15 | Outpatient (CLI) | payer BC ==
--- NOTE | 2022-04-15 08:25 | P.CON ---
Consult Note - . Consult date: 04/15/22 Assessment/Plan:: HISTORY OF PRESENT ILLNESS: 52 yr old male as a referral from Dr. Schrader presents today with severe and chronic LBP secondary to anterolisthesis, level scoliosis, spondylolisthesis, DDD and facet arthropathy for evaluation. He states his lower back pain has been going on for years ever since high school football injury. It is currently 3 out of 10 in intensity, dull, achy in the lower aspects of his lumbar spine with radiation of pain down to lower extremities. Patient has underwent multiple lumbar RFAs with success. He is interested and RFA it can but cannot go to his prior physician as he [place] of state. Apical documentation obtained. Pain is provoked with inactivity. Pain is relieved with medications (mild), topicals, injections, physical therapy years ago, daily home exercise regimen at the local gym repositioning and rest. PMH: HTN, Seasonal allergies PSH: Lumbar BL L3-L5 RFA SH: Hx of ETOH abuse. No tobacco use, No illicit drug use. FH: Non contributory All: NKDA Meds: See list REVIEW OF ORGAN SYSTEMS: CONSTITUTIONAL: No fevers or chills. No recent weight loss. HEENT: No visual acuity loss, eye pain, difficulties with hearing. No nosebleeds. No difficulty swallowing. RESPIRATORY: Denies any troubles with breathing or dyspnea on exertion. CARDIOVASCULAR: Denies any chest pain, palpitations, or recent heart attacks. GASTROINTESTINAL: Denies fatty food intolerance. Has change in bowel habits and gas bloat. GENITOURINARY: Denies any blood in urine. Has increased urinary frequency. NEUROLOGICAL: + numbness and tingling along the distal extremities. No seizure disorders or headaches. MUSCULOSKELETAL: + back pain SKIN: No skin cancer. No rash. PSYCHIATRIC: Denies current depression or suicidal thoughts. ENDOCRINE: Denies current thyroid disorders. Denies any blood sugar glucose intolerance. HEME/LYMPHATIC: Denies any lumps and bumps around the neck. History of deep venous thrombosis. ALLERGY/IMMUNOLOGY: No immunoglobulin therapy. No immune deficiencies. BREAST: Denies current breast lumps, pain or nipple discharge. Physical Examinations : Constitutional : Cooperative , not in acute distress . HEENT: Neck supple. No Lymphadenopathy. Normal thyroid size . Eyes no ptosis , no icterus, no photophobia . Hearing intact. Normal oropharynx. No Thrush. Respiratory : Chest clear to auscultations bilaterally. No wheezing. No rhonchi. Cardiovascular : Regular rate and rhythm , S1 / S2. No S3 . No S4. Gastrointestinal : Abdomen soft. No tenderness. Bowel sounds x 4. No organomegaly . Genitourinary : Deferred. Neurologic : Cranial nerve II to XII intact. No focal neurological deficits. Psychiatric : alert & oriented x 3. Matching mood & appropriate affect. Judgment & insight intact. Lymphatic No Lymphadenopathy. Musculoskeletal : Cervical Spine Motor strength in the deltoid and biceps: Normal right side. Normal Left side Motor strength biceps and the wrist extensors: Normal right side . Normal left side Motor strength in the triceps muscle: Normal right side. Normal left side Deep tendon reflexes: Normal at the biceps. Normal at Brachioradialis. Normal at triceps Cervical facet loading test: positive bilaterally Spurling test: positive bilaterally Neck distraction test: positive bilaterally Dylon sign: positive bilaterally Lumbar spine Motor strength lower extremities ,thigh and legs 5/5 Right side , 5/5 Left side Deep tendon reflexes : Normal Knee Jerk. Normal Ankle Jerk Vertebral body tenderness over Lumbar facet Loading Test: positive Right / positive Left over BL L4-L5, L5-S1 Range of motion of the lumbar spine Flexion 30 degrees, extension 10 degrees Straight Leg Raise test: Left/ Right positive at degree Cisco test: positive right / positive left. Severe tenderness over the Sacroiliac joint on the Right / Left sides Gaenslen test: positive bilaterally Seated flexion test: positive bilaterally. Sacral spine : Severe tenderness over the Sacroiliac joint: right side / left side Range of motion: Flexion of the lumbar spine <60 degrees Range of motion: Extension of the lumbar spine <20 degrees Gaenslen's Test positive David's Test positive Cisco test: positive right side / left side Thigh Thrust Test Sacral Thrust Test Imaging: MRI without contrast the lumbar spine from 09/29/21 reviewed Assessment/ Plan : Lumbar DDD, lumbar spondylosis, lumbar level scoliosis, lumbar anterolisthesis Recommendation of physical therapy regarding lumbar DDD, 3 times a week x 6 weeks. Patient may return trough was within 46 weeks for reevaluation. All questions answered. I have spent greater than 50 minutes on patient care today. Dr Baires was available by phone for the evaluation of this patient. The time was used to review the medical records including relevant urine studies and Prescription history (MAPs), review of the available imaging, evaluation and examination of the patient, coordination of care with the medical staff and if applicable referring physicians, as well as creation of the medical record PQRS Measure Charge Sheet PQRS Narrative: Smoking Status Never smoker Hx Alcohol Use (MH) No Home Medications: Ambulatory Orders Albuterol Inhaler [Ventolin Hfa Inhaler] 2 puff INHALATION RT-Q6H PRN 03/10/21 Fluticasone Nasal [place] [Flonase Nasal [place]] 2 spr EA NOSTRIL DAILY 03/10/21 Loratadine 10 mg PO DAILY 03/10/21 Meloxicam [Mobic] 15 mg PO DAILY 03/10/21 Montelukast [Singulair] 10 mg PO DAILY 03/10/21 Omeprazole 20 mg PO BID 03/10/21 Sildenafil [Revatio] 40 - 60 mg PO DAILY PRN 03/10/21 Testosterone Cypionate [Depo-Testosterone] 250 mg IM Q14D 03/10/21 lisinopriL 40 mg PO DAILY 03/10/21 Cholecalciferol [Vitamin D3 (25 Mcg = 1000 Iu)] 25 mcg PO DAILY #30 tablet 03/14/21 Multivit-Min/Folic/Vit K/Lycop [Men's Multivitamin Tablet] 1 each PO DAILY 01/16/22 Zinc 50 mg PO 01/16/22
[2022-04-15 08:34] VITALS: BP 155/100; PULSE 75; RESP 18; TEMP 98
== END ==
LOC: PNWHC3 07:48
PROVIDERS: ATTEND Specialist
DX: M51.36 Other intervertebral disc degeneration, lumbar region (principal); M43.16 Spondylolisthesis, lumbar region; M47.817 Spondylosis without myelopathy or radiculopathy, lumbosacral region; M47.816 Spondylosis without myelopathy or radiculopathy, lumbar region; M41.9 Scoliosis, unspecified
CPT/HCPCS: 99211

== ENCOUNTER 2023-02-28 18:51 | Emergency (ER) | payer BC ==
[2023-02-28 18:56] VITALS: TEMP 98
[2023-02-28] MEDS ORDERED: METOCLOPRAMIDE 5 MG/ML 2 ML VIAL IVP STA (19:09)
[2023-02-28] MEDS ORDERED: NITROGLYCERIN SL TABS 0.4 MG TAB SUBLINGUAL STA (19:09)
[2023-02-28] MEDS ORDERED: GLUCAGON 1 MG/ML VIAL IVP STA (19:09)
[2023-02-28 19:33] VITALS: BP 164/93; PULSE 91; RESP 22
--- NOTE | 2023-02-28 20:01 | XR ---
EXAMINATION TYPE: XR chest 2V DATE OF EXAM: 02/28/2023 7:31 PM COMPARISON: Chest radiographs from 03/13/2021 TECHNIQUE: XR chest 2V Frontal and lateral views of the chest. CLINICAL INDICATION:Male, 53 years old with history of food impaction; FINDINGS: Lungs/Pleura: There is no evidence of pleural effusion, focal consolidation, or pneumothorax. Pulmonary vascularity: Unremarkable. Heart/mediastinum: Cardiomediastinal silhouette is unremarkable. Musculoskeletal: No acute osseous pathology. IMPRESSION: No acute cardiopulmonary disease/process.
--- NOTE | 2023-02-28 20:02 | XR ---
EXAMINATION TYPE: XR soft tissue neck DATE OF EXAM: 02/28/2023 7:31 PM INDICATION: Patient age:Male; 53 years old; Reason for study: food impaction; COMPARISON: Chest Same day TECHNIQUE: The soft tissues of the neck were imaged in frontal and lateral views. FINDINGS: The prevertebral soft tissues are unremarkable. There is no evidence of mass effect or trac heal deviation. No acute osseous abnormality demonstrated. No evidence of subglottic narrowing. No radiopaque foreign body to suggest stuck foreign meet products. IMPRESSION: 1. No significant abnormality identified within the soft tissues of the neck. Consider cross-section al imaging if there remains concern. 2. No evidence for piece of meat stuck in chest.
--- NOTE | 2023-02-28 20:09 | ED ---
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 This has occurred previously. Past with medications. States he was eating steak this evening when he took too large of a bite and swallow and got stuck. Feels a fullness sensation located in his upper chest near his throat. I was unable to swallow secretions. His spitting them into a cup. Denies any episodes of emesis. Denies any coughing or difficulty in breathing. Denies any chest pain, abdominal pain, nausea, vomiting. His no other acute life this time. Presents over concern for food impaction. - Related Data Home Medications Medication Instructions Recorded Confirmed Albuterol Inhaler [Ventolin Hfa 2 puff INHALATION RT-Q6H PRN 03/10/21 04/15/22 Inhaler] Fluticasone Nasal [place] [Flonase 2 spr EA NOSTRIL DAILY 03/10/21 04/15/22 Nasal [place]] Loratadine 10 mg PO DAILY 03/10/21 04/15/22 Meloxicam [Mobic] 15 mg PO DAILY 03/10/21 04/15/22 Montelukast [Singulair] 10 mg PO DAILY 03/10/21 04/15/22 Omeprazole 20 mg PO BID 03/10/21 04/15/22 Sildenafil [Revatio] 40 - 60 mg PO DAILY PRN 03/10/21 04/15/22 Testosterone Cypionate 250 mg IM Q14D 03/10/21 04/15/22 [Depo-Testosterone] lisinopriL 40 mg PO DAILY 03/10/21 04/15/22 Multivit-Min/Folic/Vit K/Lycop 1 each PO DAILY 01/16/22 04/15/22 [Men's Multivitamin Tablet] Zinc 50 mg PO 01/16/22 Previous Rx's Medication Instructions Recorded Cholecalciferol [Vitamin D3 (25 25 mcg PO DAILY #30 tablet 03/14/21 Mcg = 1000 Iu)] Allergies Allergy/AdvReac Type Severity Reaction Status Date / Time No Known Allergies Allergy Verified 02/28/23 18:56 Review of Systems ROS Statement: Those systems with pertinent positive or pertinent negative responses have been documented in the HPI. Review of Systems: CONST: Denies fever EYES: Denies blurry vision ENT: Endorses food impaction C/V: Denies Chest pain RESP: Denies shortness of breath GI: Denies abdominal pain : Denies dysuria SKIN: Denies rash. MSK: Denies joint pain. NEURO: Denies headache ROS Other: All systems not noted in ROS Statement are negative. Past Medical History Past Medical History: Asthma, Hypertension Additional Past Medical History / Comment(s): alcoholism - sober 10yrs. + COVID 03/2021. CHRONIC BACK PAIN History of Any Multi-Drug Resistant Organisms: None Reported Past Surgical History: Bowel Resection Additional Past Surgical History / Comment(s): COLONOSCOPY. BOWEL RESECTION WITH COLOSTOMY AND THEN REVERSAL. 2 DENTAL IMPLANTS 12/22/21. RFA PROCEDURES EVERY YEAR FOR PAST 3 YEARS Past Anesthesia/Blood Transfusion Reactions: No Reported Reaction Past Psychological History: Anxiety Smoking Status: Never smoker Past Alcohol Use History: None Reported Past Drug Use History: None Reported - Past Family History Mother Family Medical History: Cancer Father Family Medical History: Cancer General Exam - General Exam Comments Initial Comments: General: Appears in mild distress secondary to discomfort from his food impaction. HEAD: Normal with no signs of head trauma. EYES: PERRLA, EOMI, conjunctiva normal, no discharge. ENT: Hearing grossly intact, normal oropharynx. No stridor. Unable to tolerate oral secretions and spitting them into a cup. Trachea is midline. No crepitus palpated. RESPIRATORY: Clear breath sounds bilaterally. No wheezes, rales, or rhonchi. C/V: Regular rate and rhythm. S1 and S2 auscultated. Peripheral pulses 2+ and intact throughout. ABD: Abd is soft, nontender, nondistended EXT: No obvious deformity SKIN: No rashes or lesions observed on exposed skin. NEURO: Alert and oriented 4 Limitations: no limitations Course Vital Signs 02/28/23 02/28/23 18:52 19:33 Temperature 98.0 F Pulse Rate 87 91 Respiratory 20 22 Rate Blood Pressure 167/82 164/93 O2 Sat by Pulse 98 95 Oximetry Medical Decision Making - Medical Decision Making Was pt. sent in by a medical professional or institution (, PA, CHILD AND ADOLESCENT PSYCHOLOGIST, urgent care, hospital, or penitentiary...) When possible be specific @ -No Did you speak to anyone other than the patient for history (EMS, parent, family, police, friend...)? What history was obtained from this source @ -No Did you review nursing and triage notes (agree or disagree)? Why? @ -I reviewed and agree with nursing and triage notes Were old charts reviewed (outside hosp., previous admission, EMS record, old EKG, old radiological studies, urgent care reports/EKG's, penitentiary records)? Report findings @ -I reviewed emergency department charts from 2017 which is when the patient was last year for his current symptoms. Differential Diagnosis (chest pain, altered mental status, abdominal pain women, abdominal pain men, vaginal bleeding, weakness, fever, dyspnea, syncope, headache, dizziness, GI bleed, back pain, seizure, CVA, palpatations, mental health, musculoskeletal)? @ -Food impaction, esophageal foreign body, ruptured esophagus. This list is not all inclusive. EKG interpreted by me (3pts min.). @ -As above X-rays interpreted by me (1pt min.). @ -Chest x-ray neck x-ray revealed no obvious acute process, no free air/mediastinal air to suggest esophageal rupture. CT interpreted by me (1pt min.). @ -None done U/S interpreted by me (1pt. min.). @ -None done What testing was considered but not performed or refused? (CT, X-rays, U/S, labs)? Why? @ -None What meds were considered but not given or refused? Why? @ -None Did you discuss the management of the patient with other professionals (professionals i.e. , PA, CHILD AND ADOLESCENT PSYCHOLOGIST, lab, RT, psych nurse, social work therapist, youth services librarian, teacher, dispatch officer, pillowcase cleaner)? Give summary @ -No Was smoking cessation discussed for >3mins.? @ -No Was critical care preformed (if so, how long)? @ -Yes, 35 minutes Were there social determinants of health that impacted care today? How? (Homelessness, low income, unemployed, alcoholism, drug addiction, transportation, low edu. Level, literacy, decrease access to med. care, senior care, rehab)? @ -No Was there de-escalation of care discussed even if they declined (Discuss DNR or withdrawal of care, Hospice)? DNR status @ -No What co-morbidities impacted this encounter? (DM, HTN, Smoking, COPD, CAD, Cancer, CVA, ARF, Chemo, Hep., AIDS, mental health diagnosis, sleep apnea, morbid obesity)? @ -None Was patient admitted / discharged? Hospital course, mention meds given and rout e, prescriptions, significant lab abnormalities, going to OR and other pertinent info. @ -Based on the patient's presentation and physical exam, appears to have presented with food impaction. Has occurred previously. Based on prior notes, result of medications last time with nitro, Reglan, glucagon. This will be provided to the patient. Screening EKG was also obtained as well as chest x- rays. Vital signs within acceptable limits. He was in agreement this plan. Initial medication administration did not result in successful passing of the piece of steak. Is still spitting up phlegm and spit. We will administer IV Valium at this time. EKG shows no signs of acute ischemia. X-rays are unremarkable. Following observation for an hour and a half in the department and multiple medication administrations with no success and the patient passing his food bolus, I did discuss with him that he likely requires EGD for removal. We do not have gastroenterology for this procedure and therefore he requires transfer. He was in agreement with this plan. Patient is made nothing by mouth. I spoke with [facility] ER doctor Yahir who accepted the transfer. Dayami monterroso will be transferred in stable condition via EMS for evaluation by GI services. Undiagnosed new problem with uncertain prognosis? @ -No Drug Therapy requiring intensive monitoring for toxicity (Heparin, Nitro, Insulin, Cardizem)? @ -No Were any procedures done? @ -No Diagnosis/symptom? @ -Esophageal food impaction Acute, or Chronic, or Acute on Chronic? @ -Acute Uncomplicated (without systemic symptoms) or Complicated (systemic symptoms)? @ -Complicated Side effects of treatment? @ -No Exacerbation, Progression, or Severe Exacerbation? @ -No Poses a threat to life or bodily function? How? (Chest pain, [place], [place], pneumonia, PE, COPD, DKA, ARF, appy, cholecystitis, CVA, Diverticulitis, Homicidal, Suicidal, threat to staff... and all critical care pts) @ -Yes, if untreated can result in esophageal perforation or rupture which can be life-threatening. - EKG Data -: EKG Interpreted by Me EKG Comments: 12-lead Electrocardiogram Interpretation Note EKG was reviewed and interpreted by myself. 12-lead ECG performed at 1903 is interpreted by me as revealing normal sinus rhythm at a rate of 86 beats per minute. [place] is normal. [place] interval is 157 ms, QRS duration is 109 ms, QTc is 375 ms.. There were no ST or T wave abnormalities to suggest myocardial ischemia or injury. R wave progression across the precordium was satisfactory. By my interpretation this EKG is non-diagnostic for acute ischemia. Critical Care Time Critical Care Time: Yes Total Critical Care Time: 35 Critical Care Time: Upon my evaluation, this patient had a high probability of imminent or life- threatening deterioration due to esophageal food impaction, transfer, which required my direct attention, intervention, and personal management. I have personally provided 35 minutes of critical care time exclusive of time spent on separately billable procedures. Time includes review of laboratory data, radiology results, discussion with consultants, and monitoring for potential decompensation. Interventions were performed as documented in my note. Disposition Clinical Impression: Food impaction of esophagus Disposition: OTHER INSTITUTION NOT DEFINED Condition: Stable Referrals: Tara Hunt DO [Primary Care Provider] - 1-2 days Time of Disposition: 20:27 - Out of Hospital Transfer - Req. Specs Out of Hospital Transfer - Requested Specifics: Other Emergency Center (Transferred to [facility] for evaluation by GI services, which our hospital does not have.)
== END 2023-02-28 20:47 | disposition other institution (70) ==
LOC: EC 18:51
DX: T18.128A Food in esophagus causing other injury, initial encounter (principal); J45.909 Unspecified asthma, uncomplicated; I10 Essential (primary) hypertension; F41.9 Anxiety disorder, unspecified; Z86.16 Personal history of COVID-19; Z79.899 Other long term (current) drug therapy
CPT/HCPCS: 70360; 71046; 99285; 96374; 96375 ×2; J1610; J2765; J3360

== ENCOUNTER 2023-06-27 09:07 | Emergency (ER) | payer BC ==
[2023-06-27 09:10] VITALS: TEMP 98.5
--- NOTE | 2023-06-27 09:31 | ED ---
URI HPI - General Chief Complaint: Upper Respiratory Infection Stated Complaint: covid Time Seen by Provider: 06/27/23 09:11 Source: patient, RN notes reviewed Mode of arrival: ambulatory Limitations: no limitations - History of Present Illness Initial Comments: 53-year-old male presents emergency Department chief complaint of not well. Patient states she's been sick with cough and cold-like symptoms last 2 days. Complains of bodyaches, mild nasal congestion or productive cough. Patient states he went to urgent care and test positive for covid 19. Patient states that he had this before and states he became very ill with his asthma. Patient states he has no chest pain or shortness of breath he states he just wanted a second evaluation. Patient states he does not have his current Advair and albuterol inhaler. Patient is requesting refills. Patient denies any GI symptoms including nausea and diarrhea constipation. - Related Data Home Medications Medication Instructions Recorded Confirmed Albuterol Inhaler [Ventolin Hfa 2 puff INHALATION RT-Q6H PRN 03/10/21 04/15/22 Inhaler] Fluticasone Nasal [place] [Flonase 2 spr EA NOSTRIL DAILY 03/10/21 04/15/22 Nasal [place]] Loratadine 10 mg PO DAILY 03/10/21 04/15/22 Meloxicam [Mobic] 15 mg PO DAILY 03/10/21 04/15/22 Montelukast [Singulair] 10 mg PO DAILY 03/10/21 04/15/22 Omeprazole 20 mg PO BID 03/10/21 04/15/22 Sildenafil [Revatio] 40 - 60 mg PO DAILY PRN 03/10/21 04/15/22 Testosterone Cypionate 250 mg IM Q14D 03/10/21 04/15/22 [Depo-Testosterone] lisinopriL 40 mg PO DAILY 03/10/21 04/15/22 Multivit-Min/Folic/Vit K/Lycop 1 each PO DAILY 01/16/22 04/15/22 [Men's Multivitamin Tablet] Zinc 50 mg PO 01/16/22 Previous Rx's Medication Instructions Recorded Cholecalciferol [Vitamin D3 (25 25 mcg PO DAILY #30 tablet 03/14/21 Mcg = 1000 Iu)] Albuterol Inhaler [Ventolin Hfa 1 - 2 puff INHALATION Q6H PRN #1 06/27/23 Inhaler] each Fluticasone Propion/Salmeterol 1 inhalation PO BID #1 each 06/27/23 [Advair 250-50 Diskus] Nirmatrelvir/Ritonavir [Paxlovid See Rx Instructions .ROUTE 06/27/23 2X150 mg-100 mg (Eua)] .COMPLEX #30 tab predniSONE 50 mg PO DAILY #5 tab 06/27/23 Allergies Allergy/AdvReac Type Severity Reaction Status Date / Time No Known Allergies Allergy Verified 06/27/23 09:10 Review of Systems ROS Statement: Those systems with pertinent positive or pertinent negative responses have been documented in the HPI. ROS Other: All systems not noted in ROS Statement are negative. Past Medical History Past Medical History: Asthma, Hypertension Additional Past Medical History / Comment(s): alcoholism - sober 10yrs. + COVID 03/2021. CHRONIC BACK PAIN History of Any Multi-Drug Resistant Organisms: None Reported Past Surgical History: Bowel Resection Additional Past Surgical History / Comment(s): COLONOSCOPY. BOWEL RESECTION WITH COLOSTOMY AND THEN REVERSAL. 2 DENTAL IMPLANTS 12/22/21. RFA PROCEDURES EVERY YEAR FOR PAST 3 YEARS Past Anesthesia/Blood Transfusion Reactions: No Reported Reaction Past Psychological History: Anxiety Smoking Status: Never smoker Past Alcohol Use History: None Reported Past Drug Use History: None Reported - Past Family History Mother Family Medical History: Cancer Father Family Medical History: Cancer General Exam Limitations: no limitations General appearance: alert, in no apparent distress Head exam: Present: atraumatic, normocephalic, normal inspection Eye exam: Present: normal appearance, PERRL, EOMI. Absent: scleral icterus, conjunctival injection, periorbital swelling ENT exam: Present: normal exam, normal oropharynx, mucous membranes moist Neck exam: Present: normal inspection. Absent: tenderness, meningismus, lymphadenopathy Respiratory exam: Present: normal lung sounds bilaterally. Absent: respiratory distress, wheezes, rales, rhonchi, stridor Cardiovascular Exam: Present: regular rate, normal rhythm, normal heart sounds. Absent: systolic murmur, diastolic murmur, rubs, gallop, clicks Course Vital Signs 06/27/23 09:08 Temperature 98.5 F Pulse Rate 77 Respiratory 20 Rate Blood Pressure 157/92 O2 Sat by Pulse 99 Oximetry Medical Decision Making - Medical Decision Making Was pt. sent in by a medical professional or institution (ANDERSON Baker, [place] [employer], urgent care, hospital, or longterm...) When possible be specific @ -No Did you speak to anyone other than the patient for history (EMS, parent, family, police, friend...)? What history was obtained from this source @ -No Did you review nursing and triage notes (agree or disagree)? Why? @ -I reviewed and agree with nursing and triage notes Were old charts reviewed (outside hosp., previous admission, EMS record, old EKG, old radiological studies, urgent care reports/EKG's, longterm records)? Report findings @ -No old charts were reviewed Differential Diagnosis (chest pain, altered mental status, abdominal pain women, abdominal pain men, vaginal bleeding, weakness, fever, dyspnea, syncope, headache, dizziness, GI bleed, back pain, seizure, CVA, palpatations, mental health, musculoskeletal)? @ -covid 19 URI pneumonia EKG interpreted by me (3pts min.). @ -None X-rays interpreted by me (1pt min.). @ -None done CT interpreted by me (1pt min.). @ -None done U/S interpreted by me (1pt. min.). @ -None done What testing was considered but not performed or refused? (CT, X-rays, U/S, labs)? Why? @ -None What meds were considered but not given or refused? Why? @ -None Did you discuss the management of the patient with other professionals (professionals i.e. ANDERSON Baker, [place] [employer], lab, RT, psych nurse, home health care social worker, director of business services, teacher, medical information officer, corrections caseworker)? Give summary @ -No Was smoking cessation discussed for >3mins.? @ -No Was critical care preformed (if so, how long)? @ -No Were there social determinants of health that impacted care today? How? (Homelessness, low income, unemployed, alcoholism, drug addiction, transportation, low edu. Level, literacy, decrease access to med. care, prison, rehab)? @ -No Was there de-escalation of care discussed even if they declined (Discuss DNR or withdrawal of care, Hospice)? DNR status @ -No What co-morbidities impacted this encounter? (DM, HTN, Smoking, COPD, CAD, Cancer, CVA, ARF, Chemo, Hep., AIDS, mental health diagnosis, sleep apnea, morbid obesity)? @ -None Was patient admitted / discharged? Hospital course, mention meds given and route, prescriptions, significant lab abnormalities, going to OR and other perti nent info. @ -Discharge vitals are stable, patient is well-appearing. Patient was given refills of his Advair, albuterol inhaler. Patient will have close follow-up return parameters were discussed. Undiagnosed new problem with uncertain prognosis? @ -No Drug Therapy requiring intensive monitoring for toxicity (Heparin, Nitro, Insulin, Cardizem)? @ -No Were any procedures done? @ -No Diagnosis/symptom? @ -[covid 19 Acute, or Chronic, or Acute on Chronic? @ -Acute Uncomplicated (without systemic symptoms) or Complicated (systemic symptoms)? @ -Uncomplicated Side effects of treatment? @ -No Exacerbation, Progression, or Severe Exacerbation? @ -No Poses a threat to life or bodily function? How? (Chest pain, [place], [place], pneumonia, PE, COPD, DKA, ARF, appy, cholecystitis, CVA, Diverticulitis, Homicidal, Suicidal, threat to staff... and all critical care pts) @ -No Disposition Clinical Impression: COVID-19 Disposition: HOME SELF-CARE Condition: Stable Instructions (If sedation given, give patient instructions): COVID-19 (Coronavirus Disease 2019) (ED) Additional Instructions: Please return to the Emergency Department if symptoms worsen or any other concerns. Prescriptions: Fluticasone Propion/Salmeterol [Advair 250-50 Diskus] 1 inhalation PO BID #1 each Nirmatrelvir/Ritonavir [Paxlovid 2X150 mg-100 mg (Eua)] See Rx Instructions .ROUTE .COMPLEX #30 tab predniSONE 50 mg PO DAILY #5 tab Albuterol Inhaler [Ventolin Hfa Inhaler] 1 - 2 puff INHALATION Q6H PRN #1 each PRN Reason: Shortness Of Breath Is patient prescribed a controlled substance at d/c from ED?: No Referrals: Tara Hunt DO [Primary Care Provider] - 1-2 days Time of Disposition: 09:28
[2023-06-27 09:55] VITALS: BP 150/98; PULSE 65; RESP 16
== END 2023-06-27 09:55 | disposition home or self-care (01) ==
LOC: EC 09:07
DX: U07.1 COVID-19 (principal); I10 Essential (primary) hypertension; J45.909 Unspecified asthma, uncomplicated; Z79.51 Long term (current) use of inhaled steroids; Z79.899 Other long term (current) drug therapy
CPT/HCPCS: 99283

== ENCOUNTER 2024-10-09 04:53 | Emergency (ER) | payer BC ==
[2024-10-09 05:21] VITALS: TEMP 98.4
--- NOTE | 2024-10-09 06:24 | ED ---
ENT HPI - General Chief complaint: Dental/Oral Stated complaint: toothache Time Seen by Provider: 10/09/24 06:03 Source: patient, RN notes reviewed Mode of arrival: ambulatory Limitations: no limitations - History of Present Illness Initial comments: 54-year-old male presents to the emergency department with chief complaint of left dental pain. He states that he was eating steak last night and he feels like he got a piece stuck in between his back molar. Last night while he was trying to sleep he felt throbbing pain on the left side of his cheek. He reports swelling difficulty chewing and significant pain. He states that he is going to be seeing his dentist in a couple of days. He denies difficulty swallowing neck pain headache and fever. He is not currently taking any medications other than lisinopril for hypertension. He denies other complaints. - Related Data Home Medications Medication Instructions Recorded Confirmed Albuterol Inhaler [Ventolin Hfa 2 puff INHALATION RT-Q6H PRN 03/10/21 04/15/22 Inhaler] Fluticasone Nasal [place] [Flonase 2 spr EA NOSTRIL DAILY 03/10/21 04/15/22 Nasal [place]] Loratadine 10 mg PO DAILY 03/10/21 04/15/22 Meloxicam [Mobic] 15 mg PO DAILY 03/10/21 04/15/22 Montelukast [Singulair] 10 mg PO DAILY 03/10/21 04/15/22 Omeprazole 20 mg PO BID 03/10/21 04/15/22 Sildenafil [Revatio] 40 - 60 mg PO DAILY PRN 03/10/21 04/15/22 Testosterone Cypionate 250 mg IM Q14D 03/10/21 04/15/22 [Depo-Testosterone] lisinopriL 40 mg PO DAILY 03/10/21 04/15/22 Multivit-Min/Folic/Vit K/Lycop 1 each PO DAILY 01/16/22 04/15/22 [Men's Multivitamin Tablet] Zinc 50 mg PO 01/16/22 Previous Rx's Medication Instructions Recorded Cholecalciferol [Vitamin D3 (25 25 mcg PO DAILY #30 tablet 03/14/21 Mcg = 1000 Iu)] Albuterol Inhaler [Ventolin Hfa 1 - 2 puff INHALATION Q6H PRN #1 08/13/23 Inhaler] each Fluticasone Propion/Salmeterol 1 inhalation PO BID #1 each 06/27/23 [Advair 250-50 Diskus] Nirmatrelvir/Ritonavir [Paxlovid See Rx Instructions .ROUTE 06/27/23 2X150 mg-100 mg (Eua)] .COMPLEX #30 tab predniSONE 50 mg PO DAILY #5 tab 06/27/23 Amoxic-Pot Clav 875-125Mg 1 tab PO Q12HR #20 tab 10/09/24 [Augmentin 875-125] Ibuprofen [Motrin] 600 mg PO Q8HR PRN #20 tab 10/09/24 Allergies Allergy/AdvReac Type Severity Reaction Status Date / Time No Known Allergies Allergy Verified 10/09/24 05:18 Review of Systems ROS Statement: Those systems with pertinent positive or pertinent negative responses have been documented in the HPI. ROS Other: All systems not noted in ROS Statement are negative. Past Medical History Past Medical History: Asthma, Hypertension Additional Past Medical History / Comment(s): alcoholism - sober 10yrs. + COVID 03/2021. CHRONIC BACK PAIN History of Any Multi-Drug Resistant Organisms: None Reported Past Surgical History: Bowel Resection Additional Past Surgical History / Comment(s): COLONOSCOPY. BOWEL RESECTION WITH COLOSTOMY AND THEN REVERSAL. 2 DENTAL IMPLANTS 12/22/21. RFA PROCEDURES EVERY YEAR FOR PAST 3 YEARS Past Anesthesia/Blood Transfusion Reactions: No Reported Reaction Past Psychological History: Anxiety Smoking Status: Never smoker Past Alcohol Use History: None Reported Past Drug Use History: None Reported - Past Family History Mother Family Medical History: Cancer Father Family Medical History: Cancer General Exam Limitations: no limitations General appearance: alert, in no apparent distress Head exam: Present: atraumatic, normocephalic, normal inspection Eye exam: Present: normal appearance, PERRL, EOMI. Absent: scleral icterus, conjunctival injection, periorbital swelling ENT exam: Present: normal exam, mucous membranes moist Expanded Teeth exam: Present: gingival enlargement (Gingiva near 3rd molar erythematous with moderate edema no drainable abscess) Neck exam: Present: normal inspection. Absent: tenderness, meningismus, lymphadenopathy Respiratory exam: Present: normal lung sounds bilaterally. Absent: respiratory distress, wheezes, rales, rhonchi, stridor Cardiovascular Exam: Present: regular rate, normal rhythm, normal heart sounds. Absent: systolic murmur, diastolic murmur, rubs, gallop, clicks GI/Abdominal exam: Present: soft, normal bowel sounds. Absent: distended, tenderness, guarding, rebound, rigid Extremities exam: Present: normal inspection, full ROM, normal capillary refill. Absent: tenderness, pedal edema, joint swelling, calf tenderness Back exam: Present: normal inspection Neurological exam: Present: alert, oriented X3, CN II-XII intact Psychiatric exam: Present: normal affect, normal mood Skin exam: Present: warm, dry, intact, normal color. Absent: rash Course Vital Signs 10/09/24 05:19 Temperature 98.4 F Pulse Rate 96 Respiratory 18 Rate Blood Pressure 140/91 O2 Sat by Pulse 95 Oximetry Medical Decision Making - Medical Decision Making Was pt. sent in by a medical professional or institution (ANDERSON Baker, LAB ANIMAL TECHNICIAN, urgent care, hospital, or intermediate...) When possible be specific @ -No Did you speak to anyone other than the patient for history (EMS, parent, family, police, friend...)? What history was obtained from this source @ -No Did you review nursing and triage notes (agree or disagree)? Why? @ -I reviewed and agree with nursing and triage notes Were old charts reviewed (outside hosp., previous admission, EMS record, old EKG, old radiological studies, urgent care reports/EKG's, intermediate records)? Report findings @ -No old charts were reviewed Differential Diagnosis (chest pain, altered mental status, abdominal pain women, abdominal pain men, vaginal bleeding, weakness, fever, dyspnea, syncope, headache, dizziness, GI bleed, back pain, seizure, CVA, palpatations, mental health, musculoskeletal)? @ -Toothache, dental carry, dental fracture, dental abscess EKG interpreted by me (3pts min.). @ -None X-rays interpreted by me (1pt min.). @ -None done CT interpreted by me (1pt min.). @ -None done U/S interpreted by me (1pt. min.). @ -None done What testing was considered but not performed or refused? (CT, X-rays, U/S, labs)? Why? @ -None What meds were considered but not given or refused? Why? @ -None Did you discuss the management of the patient with other professionals (professionals i.e. , PA, LAB ANIMAL TECHNICIAN, lab, RT, psych nurse, older adult social work specialist, financial director, teacher, annual giving officer, outsole caser)? Give summary @ -No Was smoking cessation discussed for >3mins.? @ -No Was critical care preformed (if so, how long)? @ -No Were there social determinants of health that impacted care today? How? ( Homelessness, low income, unemployed, alcoholism, drug addiction, transportation, low edu. Level, literacy, decrease access to med. care, senior care, rehab)? @ -No Was there de-escalation of care discussed even if they declined (Discuss DNR or withdrawal of care, Hospice)? DNR status @ -No What co-morbidities impacted this encounter? (DM, HTN, Smoking, COPD, CAD, Cancer, CVA, ARF, Chemo, Hep., AIDS, mental health diagnosis, sleep apnea, morbid obesity)? @ -None Was patient admitted / discharged? Hospital course, mention meds given and route, prescriptions, significant lab abnormalities, going to OR and other pertinent info. @ -Discharge patient does have some interval swelling, concerning for possible underlying infection. Patient was placed on Augmentin he will follow-up with his dentist. Patient is provided analgesics return parameters discussed Undiagnosed new problem with uncertain prognosis? @ -No Drug Therapy requiring intensive monitoring for toxicity (Heparin, Nitro, Insulin, Cardizem)? @ -No Were any procedures done? @ -No Diagnosis/symptom? @ -Tooth ache gingival swelling Acute, or Chronic, or Acute on Chronic? @ -Acute Uncomplicated (without systemic symptoms) or Complicated (systemic symptoms)? @ -Uncomplicated Side effects of treatment? @ -No Exacerbation, Progression, or Severe Exacerbation? @ -No Poses a threat to life or bodily function? How? (Chest pain, [place], [place], pneumonia, PE, COPD, DKA, ARF, appy, cholecystitis, CVA, Diverticulitis, Homicidal, Suicidal, threat to staff... and all critical care pts) @ -No Disposition Clinical Impression: Toothache Disposition: HOME SELF-CARE Condition: Stable Instructions (If sedation given, give patient instructions): Toothache (ED) Additional Instructions: Please return to the Emergency Department if symptoms worsen or any other concerns. Prescriptions: Amoxic-Pot Clav 875-125Mg [Augmentin 875-125] 1 tab PO Q12HR #20 tab Ibuprofen [Motrin] 600 mg PO Q8HR PRN #20 tab PRN Reason: Pain Is patient prescribed a controlled substance at d/c from ED?: No Referrals: Tara Hunt DO [Primary Care Provider] - 1-2 days Time of Disposition: 06:28
[2024-10-09] MEDS: IBUPROFEN 600 MG TAB PO STA (06:28)
[2024-10-09 06:43] VITALS: BP 153/89; PULSE 82; RESP 16
== END 2024-10-09 06:37 | disposition home or self-care (01) ==
LOC: EC 04:53
DX: K08.89 Other specified disorders of teeth and supporting structures (principal)
CPT/HCPCS: 99282; 99283

== ENCOUNTER 2024-11-22 01:03 | Emergency (ER) | payer BC, OTHER ==
--- NOTE | 2024-11-22 01:28 | ED ---
Back Pain [facility] - General Chief Complaint: Back Pain/Injury Stated Complaint: Back Pain Time Seen by Provider: 11/22/24 01:11 Source: patient, RN notes reviewed - History of Present Illness Initial Comments: Patient is a 54 year old male with a past medical history of chronic back pain who presents for increasing back pain x 1 week. He states that the pain is in his lower back, and that he has "no discs between L3-L5". He notes he has had "nerves burned off", but he is starting to feel pain again. He states that he usually takes 20mg Prednisone in the morning and at night, but it has not been taking away the pain. He has tried getting an appointment with OA but will not be able to get in until 12/05/24, so he decided to come in for a "prednisone shot". He notes that he is unable to rise up from laying or leaning back. He denies any numbness, tingling, bowel or urinary incontinence. - Related Data Home Medications Medication Instructions Recorded Confirmed Albuterol Inhaler [Ventolin Hfa 2 puff INHALATION RT-Q6H PRN 03/10/21 04/15/22 Inhaler] Fluticasone Nasal [place] [Flonase 2 spr EA NOSTRIL DAILY 03/10/21 04/15/22 Nasal [place]] Loratadine 10 mg PO DAILY 03/10/21 04/15/22 Meloxicam [Mobic] 15 mg PO DAILY 03/10/21 04/15/22 Montelukast [Singulair] 10 mg PO DAILY 03/10/21 04/15/22 Omeprazole 20 mg PO BID 03/10/21 04/15/22 Sildenafil [Revatio] 40 - 60 mg PO DAILY PRN 03/10/21 04/15/22 Testosterone Cypionate 250 mg IM Q14D 03/10/21 04/15/22 [Depo-Testosterone] lisinopriL 40 mg PO DAILY 03/10/21 04/15/22 Multivit-Min/Folic/Vit K/Lycop 1 each PO DAILY 01/16/22 04/15/22 [Men's Multivitamin Tablet] Zinc 50 mg PO 01/16/22 Previous Rx's Medication Instructions Recorded Cholecalciferol [Vitamin D3 (25 25 mcg PO DAILY #30 tablet 03/14/21 Mcg = 1000 Iu)] Albuterol Inhaler [Ventolin Hfa 1 - 2 puff INHALATION Q6H PRN #1 06/27/23 Inhaler] each Fluticasone Propion/Salmeterol 1 inhalation PO BID #1 each 06/27/23 [Advair 250-50 Diskus] Nirmatrelvir/Ritonavir [Paxlovid See Rx Instructions .ROUTE 06/27/23 2X150 mg-100 mg (Eua)] .COMPLEX #30 tab predniSONE 50 mg PO DAILY #5 tab 06/27/23 Amoxic-Pot Clav 875-125Mg 1 tab PO Q12HR #20 tab 10/09/24 [Augmentin 875-125] Ibuprofen [Motrin] 600 mg PO Q8HR PRN #20 tab 10/09/24 Allergies Allergy/AdvReac Type Severity Reaction Status Date / Time No Known Allergies Allergy Verified 11/22/24 01:09 Review of Systems ROS Statement: Those systems with pertinent positive or pertinent negative responses have been documented in the HPI. ROS Other: All systems not noted in ROS Statement are negative. Past Medical History Past Medical History: Asthma, Hypertension Additional Past Medical History / Comment(s): alcoholism - sober 10yrs. + COVID 03/2021. CHRONIC BACK PAIN History of Any Multi-Drug Resistant Organisms: None Reported Past Surgical History: Bowel Resection Additional Past Surgical History / Comment(s): COLONOSCOPY. BOWEL RESECTION WITH COLOSTOMY AND THEN REVERSAL. 2 DENTAL IMPLANTS 12/22/21. RFA PROCEDURES EVERY YEAR FOR PAST 3 YEARS Past Anesthesia/Blood Transfusion Reactions: No Reported Reaction Past Psychological History: Anxiety Smoking Status: Never smoker Past Alcohol Use History: Abuse Past Drug Use History: None Reported - Past Family History Mother Family Medical History: Cancer Father Family Medical History: Cancer General Exam Limitations: no limitations General appearance: alert, in no apparent distress, anxious Head exam: Present: atraumatic, normocephalic, normal inspection Neck exam: Present: normal inspection, full ROM. Absent: tenderness, meningismus, lymphadenopathy Respiratory exam: Present: normal lung sounds bilaterally. Absent: respiratory distress, wheezes, rales, rhonchi, stridor Cardiovascular Exam: Present: regular rate, normal rhythm, normal heart sounds. Absent: systolic murmur, diastolic murmur, rubs, gallop, clicks GI/Abdominal exam: Present: soft, normal bowel sounds. Absent: distended, tenderness, guarding, rebound, rigid Extremities exam: Present: normal inspection, full ROM, normal capillary refill. Absent: tenderness, pedal edema, joint swelling, calf tenderness Back exam: Present: full ROM, tenderness, paraspinal tenderness Neurological exam: Present: alert, oriented X3, CN II-XII intact, reflexes normal. Absent: motor sensory deficit Skin exam: Present: warm, dry, intact, normal color. Absent: rash Course Vital Signs 11/22/24 01:07 Temperature 98.0 F Pulse Rate 81 Respiratory 18 Rate Blood Pressure 158/83 O2 Sat by Pulse 99 Oximetry Medical Decision Making - Medical Decision Making Was pt. sent in by a medical professional or institution (, PA, STULL INSTALLER, urgent ca re, hospital, or custodial...) When possible be specific @ -No Did you speak to anyone other than the patient for history (EMS, parent, family, police, friend...)? What history was obtained from this source @ -No Did you review nursing and triage notes (agree or disagree)? Why? @ -I reviewed and agree with nursing and triage notes Were old charts reviewed (outside hosp., previous admission, EMS record, old EKG, old radiological studies, urgent care reports/EKG's, custodial records)? Report findings @ -No old charts were reviewed Differential Diagnosis (chest pain, altered mental status, abdominal pain women, abdominal pain men, vaginal bleeding, weakness, fever, dyspnea, syncope, headache, dizziness, GI bleed, back pain, seizure, CVA, palpatations, mental health, musculoskeletal)? @ -Differential Back Pain: Strain, zoster, cauda equina syndrome, epidural abscess, vertebral osteomyelitis, discitis, fracture, subluxation, disc herniation, DJD, spinal stenosis, dissection, AAA, pancreatitis, peptic ulcer disease, pyelonephritis, kidney stone, this is not meant to be an all-inclusive list. EKG interpreted by me (3pts min.). @ -As above X-rays interpreted by me (1pt min.). @ -None done CT interpreted by me (1pt min.). @ -None done U/S interpreted by me (1pt. min.). @ -None done What testing was considered but not performed or refused? (CT, X-rays, U/S, labs)? Why? @ -None What meds were considered but not given or refused? Why? @ -None Did you discuss the management of the patient with other professionals (professionals i.e. , PA, STULL INSTALLER, lab, RT, psych nurse, social media assistant, oyster grader, teacher, border patrol officer, classification case manager)? Give summary @ -No Was smoking cessation discussed for >3mins.? @ -No Was critical care preformed (if so, how long)? @ -No Were there social determinants of health that impacted care today? How? (Homelessness, low income, unemployed, alcoholism, drug addiction, transportation, low edu. Level, literacy, decrease access to med. care, [facility], rehab)? @ -No Was there de-escalation of care discussed even if they declined (Discuss DNR or withdrawal of care, Hospice)? DNR status @ -No What co-morbidities impacted this encounter? (DM, HTN, Smoking, COPD, CAD, Cancer, CVA, ARF, Chemo, Hep., AIDS, mental health diagnosis, sleep apnea, morbid obesity)? @ -None Was patient admitted / discharged? Hospital course, mention meds given and route, prescriptions, significant lab abnormalities, going to OR and other pertinent info. @ -Discharge patient feels greatly improved after Toradol Solu-Medrol. Patient has no red flag symptoms patient discharged in stable condition Undiagnosed new problem with uncertain prognosis? @ -No Drug Therapy requiring intensive monitoring for toxicity (Heparin, Nitro, Insulin, Cardizem)? @ -No Were any procedures done? @ -No Diagnosis/symptom? @ -Back pain Acute, or Chronic, or Acute on Chronic? @ -Acute on chronic Uncomplicated (without systemic symptoms) or Complicated (systemic symptoms)? @ -Uncomplicated Side effects of treatment? @ -No Exacerbation, Progression, or Severe Exacerbation? @ -No Poses a threat to life or bodily function? How? (Chest pain, [place], [place], pneumonia, PE, COPD, DKA, ARF, appy, cholecystitis, CVA, Diverticulitis, Homicidal, Suicidal, threat to staff... and all critical care pts) @ -No Disposition Clinical Impression: Back pain Disposition: HOME SELF-CARE Condition: Stable Additional Instructions: Please return to the Emergency Department if symptoms worsen or any other concerns. Is patient prescribed a controlled substance at d/c from ED?: No Referrals: Tara Hunt DO [Primary Care Provider] - 1-2 days Time of Disposition: 02:52
[2024-11-22] MEDS: methylPREDNISolone SOD SUCCI 125 MG/2 ML VIAL IM ONE (01:46)
[2024-11-22] MEDS: KETOROLAC 15 MG/ML 1 ML VIAL IM STA (01:49)
[2024-11-22 06:46] VITALS: BP 140/78; PULSE 78; RESP 16; TEMP 97.7
== END 2024-11-22 02:20 | disposition home or self-care (01) ==
LOC: EC 01:03
DX: G89.29 Other chronic pain (principal); M54.50 Low back pain, unspecified; Z86.16 Personal history of COVID-19
CPT/HCPCS: 99283; 96372; J1885; J2919